=== PATIENT | female | born 1960 | race Caucasian/White ===

== ENCOUNTER → 2018-10-11 11:16 | Outpatient (CLI) | payer OTHER, SELFPAY ==
[2018-10-11 12:26] LABS: International Normalized Ratio 2.9; Prothrombin Time (Protime)PT. 30.1 SECONDS (11.7-14.9)
[2018-10-11 13:09] LABS: ALB/GLOB Ratio 1.1 RATIO (0.9-2.4); AST(SGOT) 32 U/L (15-37); Alanine Aminotransfer ALT/SGPT 36 U/L (13-56); Albumin, Serum 3.9 g/dL (3.2-5.0); Alkaline Phosphatase 97 U/L (45-117); Anion Gap 8 (5-15); BUN 10 mg/dL (7-18); BUN/Creat Ratio 12.2 RATIO (10-20); Calcium,Total 9.2 mg/dL (8.5-10.1); Chloride 108 mmol/L (98-107); Creatinine, Serum 0.82 mg/dL (0.55-1.02); EST Glomerular Filtration Rate 76 mL/min (>60); Est Glom Filt Rate - Afr Amer 92 mL/min (>60); Globulin 3.6 g/dL (2.2-4.2); Glucose 85 mg/dL (74-106); Potassium 3.7 mmol/L (3.5-5.1); Protein, Total 7.5 g/dL (6.4-8.2); Sodium Level 143 mmol/L (136-145); Thyroid Stim Hormone (TSH) 0.53 uIU/mL (0.358-3.74)
--- OUTSIDE RECORDS SUMMARY | 2018-12-04 17:10 | XMS RPT_ITS ---
:1960 Author Organization OHIP Care Team Providers Name Role Phone Jayson Meyers Attending Unavailable PROBLEMS PROBLEMS No Problem Records FoundPROCEDURES PROCEDURES No Procedure Records FoundRESULTS RESULTS PROTHROMBIN TIME W/INR Collected: 10/11/2018 Status: F Source: [place] 11:17 AM [facility] REPOSITORY Order Comment: Order Date: 07/09/18 Order Info: [id number] - PT TYPE CODE TESTS RESULT OUT OF RANGE REFERENCE UNITS LAB L300.4150 11.7-14.9 SECONDS High PROTIME 30.1 LAB L300.4200 Normal INR 2.9 Performed By: #### L300.3900, L500.4050, L501.9520 #### [facility] [address] [place], [place], [address] COMPREHENSIVE METABOLIC Collected: 10/11/2018 Status: F Source: [facility] 11:17 AM [facility] REPOSITORY Order Comment: Order Date: 07/09/18 Order Info: [id number] - CMP Order Info: [id number] - TSH TYPE CODE TESTS RESULT OUT OF RANGE REFERENCE UNITS LAB L501.0100 74-106 mg/dL Normal GLU 85 Result Comment: Please note revised GLUCOSE reference range effective 2017. LAB L501.1000 7-18 mg/dL Normal BUN 10 LAB L501.1100 0.55-1.02 mg/dL Normal CREAT,SERUM 0.82 Result Comment: The validity of the calculated GFR AND GFRAA in patients over 70 years has not been determined. Clinical correlation is essential. LAB L501.1110 >60 mL/min Normal EST GFR 76 Result Comment: Non- GFR Calc LAB L501.1115 >60 mL/min Normal EST GFR - AA 92 Result Comment: GFR Calc LAB L501.1300 10-20 RATIO Normal BUN/CRE 12.2 LAB L501.1500 6.4-8.2 g/dL T Normal PROT 7.5 LAB L501.1800 3.2-5.0 g/dL Normal ALB 3.9 LAB L501.1950 2.2-4.2 g/dL Normal GLOB 3.6 LAB L501.2000 0.9-2.4 RATIO Normal A/G 1.1 LAB L501.2200 8.5-10.1 mg/dL CA Normal 9.2 LAB L501.4100 15-37 U/L Normal AST 32 LAB L501.4305 45-117 U/L Normal ALK P 97 LAB L501.4405 13-56 U/L Normal ALT 36 LAB L501.4600 0.20-1.00 mg/dL T Normal BILI 0.50 LAB L501.5300 136-145 mmol/L NA Normal 143 LAB L501.5600 3.5-5.1 mmol/L K Normal 3.7 LAB L501.5900 98-107 mmol/L High CL 108 LAB L501.6100 21.0-32.0 mmol/L Normal CO2 27.0 LAB L501.6200 5-15 Normal GAP 8 Performed By: #### L300.3900, L500.4050, L501.9520 #### [facility] [address] [place], [place], [address] THYROID STIM HORMONE Collected: 10/11/2018 Status: F Source: [place] ([facility]) 11:17 AM [facility] REPOSITORY Order Comment: Order Date: 07/09/18 Order Info: [id number] - CMP Order Info: [id number] - TSH TYPE CODE TESTS RESULT OUT OF RANGE REFERENCE UNITS LAB L501.9520 0.358-3.74 uIU/mL Normal TSH 0.53 Performed By: #### L300.3900, L500.4050, L501.9520 #### [facility] [address] [place], [address] ALLERGIES ALLERGIES No Allergies Records FoundENCOUNTERS ENCOUNTERS ADMIT/DISCHARGE ACCOUNT ADMITTING ENCOUNTER LOCATION SOURCE NUMBER CLASS 10/11/2018 [id number] Ambulatory [facility] 4 [facility] ing:MFPLAB Repository PAYERS PAYERS ENCOUNTER GUARANTOR PAYER SUBSCRIBER SOURCE 10/11/2018 CHANTAL [id number] [id number] [address] Number: Repository [id number] (HP) Date:[id number] [address] [place] [id number]: 10/11/2018 [facility] Number: Effective Repository Date:2018-10-11
== END ==
PROVIDERS: Visit Provider Family Medicine
DX: I82.409 Acute embolism and thrombosis of unspecified deep veins of unspecified lower extremity (principal); R79.89 Other specified abnormal findings of blood chemistry; R03.0 Elevated blood-pressure reading, without diagnosis of hypertension
CPT/HCPCS: 36415; 80053; 84443; 85610

== ENCOUNTER 2018-11-19 11:58 | Outpatient (RCR) | payer OTHER, SELFPAY ==
[2018-11-19 14:02] LABS: International Normalized Ratio 2.7; Prothrombin Time (Protime)PT. 28.4 SECONDS (11.7-14.9)
== END 2018-11-19 13:00 | disposition home or self-care (01) ==
LOC: MTLAB 11:58
PROVIDERS: Family Provider Family Medicine; PCP Family Medicine; Referring Provider Family Medicine; Visit Provider Family Medicine
DX: I82.409 Acute embolism and thrombosis of unspecified deep veins of unspecified lower extremity (principal)
CPT/HCPCS: 36415; 85610

== ENCOUNTER → 2019-11-16 12:24 | Outpatient (CLI) | payer OTHER, SELFPAY ==
[2019-11-16 14:23] LABS: Absolute Lymphocyte Count 1.76 X10^3/uL (0.83-4.51); Absolute Neutrophil Count 4.2 X10^3/uL (2.0-7.7); Basophil# 0.06 X10^3/uL; Basophil% 0.9 % (0-1); Eosinophil# 0.08 X10^3/uL; Eosinophils% 1.2 % (0-5); Hematocrit 48.7 % (37-47); Hemoglobin 15.9 g/dL (12.0-15.0); Lymphocyte # 1.76 X10^3/ul (4.0); Mean Corp Hgb Conc 32.6 g/dL (32-36); Mean Corpuscular Hgb 28.3 pg (27.0-32.0); Mean Corpuscular Volume 86.7 fL (81-99); Mean Platelet Vol. 11.1 fl (6.2-12.0); Monocyte# 0.62 X10^3/uL; Monocyte% 9.2 % (0-10); NRBC Flagged by Analyzer 0 % (0-5); Neutrophil # 4.24 X10^3/uL (2.7-7.7); Neutrophil % 62.6 % (47-70); Platelet Count 243 K/mm3 (150-450); RBC Distribution Width SD 41.1 fl (35.1-43.9); Red Blood Count 5.62 M/mm3 (4.2-5.4); White Blood Count 6.8 K/mm3 (4.4-11.0)
[2019-11-16 14:39] LABS: Vitamin B12 801 pg/mL (211-911); Vitamin D,25 Hydroxy 9.1 ng/mL (29.95-100.01)
[2019-11-16 14:43] LABS: ALB/GLOB Ratio 1.3 RATIO (0.9-2.4); AST(SGOT) 21 U/L (15-37); Alanine Aminotransfer ALT/SGPT 36 U/L (13-56); Albumin, Serum 4.4 g/dL (3.2-5.0); Alkaline Phosphatase 88 U/L (45-117); Anion Gap 7 (5-15); BUN 8 mg/dL (7-18); BUN/Creat Ratio 8.8 RATIO (10-20); Calcium,Total 9.5 mg/dL (8.5-10.1); Chloride 105 mmol/L (98-107); Cholesterol 190 mg/dL (200); Creatinine, Serum 0.91 mg/dL (0.55-1.02); EST Glomerular Filtration Rate 67 mL/min (>60); Est Glom Filt Rate - Afr Amer 81 mL/min (>60); Globulin 3.5 g/dL (2.2-4.2); Glucose 97 mg/dL (74-106); High Density Lipoprotein 80 mg/dL; Potassium 3.1 mmol/L (3.5-5.1); Protein, Total 7.9 g/dL (6.4-8.2); Sodium Level 142 mmol/L (136-145); Thyroid Stim Hormone (TSH) 0.48 uIU/mL (0.358-3.74); Triglycerides 112 mg/dL; Very Low Density Lipoprotein 22 mg/dL (5-40)
== END ==
PROVIDERS: Family Provider Family Medicine; PCP Family Medicine; Referring Provider Family Medicine; Visit Provider Family Medicine
DX: R41.89 Other symptoms and signs involving cognitive functions and awareness (principal); Z13.220 Encounter for screening for lipoid disorders
CPT/HCPCS: 36415; 80053; 80061; 82306; 82607; 84443; 85025; 87086; 87088

== ENCOUNTER 2019-11-16 14:37 | Emergency (ER) | payer OTHER, SELFPAY ==
[2019-11-16 14:38] VITALS: BP 167/93; PULSE 76; RESP 16; TEMP 36.8; O2SAT 100; BMI 36.3
[2019-11-16 14:55] VITALS: BP 162/81; PULSE 78; RESP 15; O2SAT 99
--- NOTE | 2019-11-16 15:12 | EKG12_ITS ---
Test Reason : CONFUSION Blood Pressure : / mmHG Vent. Rate : 071 BPM Atrial Rate : 071 BPM P-R Int : 130 ms QRS Dur : 074 ms QT Int : 398 ms P-R-T Axes : 004 042 005 degrees QTc Int : 432 ms Normal sinus rhythm Normal ECG Confirmed by KLEVER KRISHNAMURTHY, EDDIE ([id number]), editorial director DEBORAH GUILLEN ([id number]) on 11/17/2019 10:36:40 AM Referred By: BB Confirmed By:ULISES ERNST MD
--- NOTE | 2019-11-16 15:12 | CT_ITS ---
STUDY: CT BRAIN WITHOUT CONTRAST REASON FOR EXAM: Female, 59 years old. CONFUSION, AMS RADIATION DOSAGE (If Supplied By Facility): CTDIvol = ( 60.81 ) mGy, DLP = ( 998.67 ) mGycm TECHNIQUE: Transaxial CT imaging of the brain was performed without administration of intravenous contrast material. Individualized dose optimization techniques were used for this CT. COMPARISON: No relevant priors. FINDINGS: Normal soft tissue structures. Normal calvarium. Mild calcification of cavernous carotids. Normal size ventricles and extra-axial spaces for the patient''s age. Mild periventricular white matter ischemic changes.. Normal basal ganglia and thalami. Normal brainstem. Normal cerebellum. There is no intracranial hemorrhage. There are no findings of an acute ischemic infarction. Normal visualized paranasal sinuses. CT/Brain/Head without Contrast IMPRESSION: Mild periventricular white matter ischemic change. No evidence for acute bleed. If concern for acute infarct MRI recommended. Electronically Signed: Elijah Jordan MD at 16:09 EST , Service support ,
--- NOTE | 2019-11-16 15:26 | ED.DCSUM_ITS ---
History of Present Illness Chief Complaint: Confusion Informant: Patient Onset: - - unk Context: - - unk Quality: disoriented Current Severity: Moderate Maximum Severity: Moderate Narrative: Patient is somewhat confused, and is alone at the time of initial evaluation, limiting history. According to staff he was given some history by the son, patient was sent here by her doctor's office after having had some blood work today. She was seen for the disorientation in the office by her PCP this morning. She states she does not feel well but has no other physical symptoms right now. She thinks she had some chest discomfort recently but it was not today. She does not remember much about it. She states she has been having headaches but denies having one now. She felt nauseated recently but not today. She does not remember having any vomiting. She thinks her bowel movements have been normal. No diarrhea or constipation or blood. She does not recall any f alls or injuries recently. She states she has been incontinent of urine from time to time but without dysuria or hematuria. Past Medical History - Allergies and Home Meds Allergies/Adverse Reactions: Allergies No Known Allergies Allergy (Verified 11/16/19 14:40) Primary Care Physician: Jayson Beck MD [Primary Care Provider] - Smoking Status: Never smoker Review of Systems ROS: Unable to Obtain - Limited due to mental status. See above. General: Reports: Malaise. Denies: Fever Eyes: Denies: Visual changes - bilaterally, Diplopia ENT: Denies: Bilateral ear pain, Rhinorrhea, Sore throat Cardiovascular: Reports: Chest pain - Sometime recently but not today or now Respiratory: Denies: Dyspnea, Cough Gastrointestinal: Reports: Nausea - Gone now. Denies: Abdominal pain, Vomiting, Diarrhea, Constipation Genitourinary: Reports: - - Urinary incontinence intermittently. Denies: Dysuria, Hematuria Musculoskeletal: Denies: Neck pain, Back pain, Swelling, Extremity Pain Skin: Denies: Rash, Abscess Neurological: Reports: - - Disorientation. Denies: Headache, Weakness, Parasthesia, Numbness Endocrine: Denies: Polyuria, Polydipsia, Heat intolerance, Cold intolerance Physical Exam Vital Signs/Narrative: Vital Signs Temp Pulse Resp BP Pulse Ox 11/16/19 14:55 78 15 162/81 H 99 11/16/19 14:38 98.2 F 76 16 167/93 H 100 Inital Vital Signs reviewed: Yes General: Well nourished, Well developed, No Acute Distress Head: Normocephalic, Atraumatic Eyes: Perrl, EOMI ENT: Moist mucous membranes, No rhinorrhea Neck: Supple, Nontender Cardiovascular: Regular rate, Regular rhythm, No murmurs Respiratory: No distress, CTA bilaterally, Chest nontender Abdomen: Soft, Nontender, Nondistended, Normal bowel sounds Back: Nontender, Normal Inspection Extremities: Nontender, - - Possibly trace nonpitting edema, symmetric both lower extremities Skin: Normal color, No rash, No Trauma Neurological: Alert, Oriented x3 - Answers all questions appropriately, but has somewhat of a spacey look and seems confused when trying to answer many questions., Cranial nerves II-XII grossly intact, Normal Strength, Normal Sensation, - - No aphasia or dysarthria or lateralizing exam findings. Able to identify objects appropriately. Psychological: Normal affect, Normal Mood Diagnostic/Tx/Re-eval Impressions Brain CT 11/16/19 15:12 IMPRESSION: Mild periventricular white matter ischemic change. No evidence for acute bleed. If concern for acute infarct MRI recommended. Electronically Signed: Elijah Jordan MD at 16:09 EST , Service support , Chest X-Ray 11/16/19 16:00 IMPRESSION: No acute cardiopulmonary pathology. Electronically Signed: Elijah Jordan MD at 16:23 EST , Service support , 11/16/19 15:12 CT Brain [Brain/Head without Contrast] [CT] Stat 11/16/19 16:00 CXR [Chest PA and Lateral] [RAD] Stat Laboratory Results 11/16/19 11/16/19 15:37 16:47 Troponin I < 0.015 Urine Color Yellow Urine Clarity Sl. Cloudy Urine pH 6.5 Ur Specific [place] 1.015 Urine Protein Negative Urine Glucose (UA) Normal Urine Ketones 50 H Urine Occult Blood Negative Urine Nitrite Negative Urine Bilirubin Negative Urine Urobilinogen Normal Ur Leukocyte Esterase 100 H Urine RBC 0 SEEN Urine WBC 0-5 SEEN Ur Squamous Epith Cells 0-5 SEEN Urine Bacteria RARE Urine Mucus 1+ - EKG Initial EKG Interpretation: Sinus Rhythm, No Acute Injury Pattern - 71. normal EKG. - Medical Decision Making Discussed with the son, this has been progressively worsening for months. Started with forgetting where her keys were and minor other memory problems. This may be dementia. Her work-up really is negative. I see no evidence of dehydration on the labs that were done earlier today but I gave her some IV fluids while we are awaiting the rest of the work-up anyway. Chest x-ray, CT head, cardiac work-up, and urinalysis are unremarkable except for 100 leukocyte Esterace in the urine, no pyuria or bacteria. I did send that for culture. I discussed with Dr. Botello on-call for her PCP, he will pass it on and the son is comfortable taking her home, they were advised to follow-up as an outpatient. ED Disposition - Plan for ED Patient: Disposition: Home or Assisted Living Diagnosis: Disorientation, unspecified Instructions: Confusion, DEMENTIA, Any Type Referrals: Jayson Beck MD [Primary Care Provider] - 3-5 Days
[2019-11-16] MEDS: 0.9% Normal Saline 1,000 ML 150 ML IV (15:47)
--- NOTE | 2019-11-16 16:00 | RAD_ITS ---
STUDY: X-RAY CHEST REASON FOR EXAM: Female, 59 years old. DIFFICULT TO OBTAIN CHEIF COMPLAINT FROM PT, PER SENT FROM PCP FOR EVAL OF CONFUSION FOR PAST MONTH, ALSO URINARY INCONTINENCE. TECHNIQUE: PA and lateral COMPARISON: None. FINDINGS: Less than optimal inspiratory effort is seen however the lungs are clear.. There is no demonstrated pleural abnormality. Normal size heart. Normal mediastinum and loly. Normal visualized pulmonary arteries. Normal visualized aortic arch and descending thoracic aorta. Dorsal spine demonstrates mild degenerative change. Normal visualized ribs, clavicles, and shoulders. There is no demonstrated abnormality of the visualized soft tissue structures of the upper abdomen. RAD/Chest PA and Lateral IMPRESSION: No acute cardiopulmonary pathology. Electronically Signed: Elijah Jordan MD at 16:23 EST , Service support ,
[2019-11-16 16:51] LABS: Red Blood Cells-Urine 0 SEEN /hpf (0-5)
[2019-11-16 17:15] LABS: Color, Urine Yellow (Yellow); Glucose, Dipstick Normal (Normal); Ketone-Dipstick 50 mg/dl (Negative); Leukocyte Esterase-Dipstick 100 /ul (Negative); Nitrite-Dipstick Negative (Negative); Occult Blood-Urine Negative /ul (Negative); Protein-Dipstick Negative (Negative); Specific Gravity, Urine 1.015 (1.002-1.030); Urine Bilirubin Dipstick Negative (Negative); Urine Clarity Sl. Cloudy (Clear); Urine Urobilinogen Normal (Normal); Urine pH 6.5 (5.0 - 8.0)
[2019-11-16 17:31] LABS: Bacteria RARE /hpf (None Seen); Mucous, Urine 1+ /hpf (<or=2+); Squamous Epithelial Cells - UA 0-5 SEEN /hpf (5-10)
[2019-11-16 17:32] LABS: White Blood Cells 0-5 SEEN /hpf (0-5)
[2019-11-16 18:00] VITALS: BP 180/65; PULSE 87; RESP 17; O2SAT 95
[2019-11-16 19:25] VITALS: BP 170/81; BP 170/91; PULSE 87; RESP 22; O2SAT 95
--- NOTE | 2019-11-16 19:39 | ED.RN ---
FAMILY ASKING QUESTIONS REGARDING THINGS THE FAMILY DOCTOR SAID ABOUT HER BRAIN/CONFUSION SYMPTOMS. I ONLY HAD DISCHARGE SYMPTOMS AND RESULTS OF TESTS DONE TODAY. I TOLD THEM WHAT I COULD AND ASKED THEM IF THEY WOULD LIKE ME TO BRING DR. LANGLEY IN TO ANSWER MORE QUESTIONS FOR THEM. THEY DENIED THIS REQUEST AT THIS TIME. PATIENT ALSO HAD ELEVATED BP THIS ENTIRE TIME SHE WAS IN THE DEPARTMENT. THEY STATED THEIR FAMILY DOCTOR IS WATCHING THIS. DR. NEIL WAS AWARE ALSO. THIS NURSE GAVE THEM INFORMATION ABOUT WHAT TO WATCH FOR IF THE BLOOD PRESSURE IS CAUSING INCREASED SYMPTOMS EXAMPLE SEVERE HEADACHES OR BLURRED VISION WHICH WOULD REQUIRE ANOTHER ED VISIT.
== END 2019-11-16 19:43 | disposition home or self-care (01) ==
PROVIDERS: Emergency Provider Emergency Medicine; Family Provider Family Medicine; PCP Family Medicine
DX: R41.0 Disorientation, unspecified (principal); R32 Unspecified urinary incontinence
CPT/HCPCS: 36415; 70450; 71046; 81001; 84484; 93005; 99284; A4216

== ENCOUNTER → 2019-12-17 08:36 | Outpatient (CLI) | payer OTHER, SELFPAY ==
--- NOTE | 2019-12-17 09:15 | MRI_ITS ---
STUDY: MRI BRAIN WITHOUT CONTRAST REASON FOR EXAM: Female, 59 years old. COGNITIVE IMPAIRMENT, memory loss, and amp;quot;hearing voices and amp;quot; TECHNIQUE: Standardized multiplanar fat and water weighted pulse sequences were obtained. COMPARISON: June 03, 2007 FINDINGS: Normal size of the ventricles and extra-axial spaces for the patient''s age. There are multiple white matter hyperintensities, distributed throughout the deep white matter tracts of the cerebral hemispheres, consistent with mild chronic white matter ischemic changes. Normal bilateral basal ganglia. Normal thalami. There is no extra-axial fluid accumulation. Normal flow voids within the major intracranial circulation suggesting patency by spin echo criteria. Normal sella turcica, pituitary gland, infundibular stalk, optic chiasm and hypothalamus. Normal tectal plate and pineal gland. Normal midbrain, bebeto and medulla. Normal cerebellum. Normal basal cisterns. Normal bilateral temporal bones. MRI/Brain without Contrast IMPRESSION: No acute intracranial abnormality. Mild chronic microvascular ischemic changes. Electronically Signed: Elkin Hawley MD at 9:16 EST Tel , Service support ,
== END ==
PROVIDERS: PCP Family Medicine; Referring Provider Family Medicine; Visit Provider Family Medicine
DX: R41.89 Other symptoms and signs involving cognitive functions and awareness (principal)
CPT/HCPCS: 70551

== ENCOUNTER → 2019-12-26 10:50 | Outpatient (CLI) | payer OTHER, SELFPAY ==
--- NOTE | 2019-12-26 11:00 | RAD_ITS ---
PROCEDURE: Fluoroscopic guided Lumbar Puncture. DATE: December 26, 2019. CLINICAL INDICATION: Dementia. PHYSICIAN: Hola Frye M.D. MEDICATIONS: 1% lidocaine administered subcutaneously for local anesthesia. ACCESS SITE: Lower posterior back. NEEDLE: 22-gauge spinal needle. SPECIMEN: Approximately 13 mL clear]CSF fluid. FLUOROSCOPY TIME (if supplied): (1:12) minutes/seconds COMPLICATIONS: None immediate. The risks, benefits, and alternatives to the procedure were explained to the patient. The specific risks of bleeding, infection, and neurovascular injury were detailed and accepted. Witnessed informed consent was obtained. The patient was placed on the fluoroscopic table in the prone position. The level for needle entry was determined and marked. The overlying skin was cleaned and prepped in the usual sterile fashion. 2% lidocaine was administered subcutaneously for local anesthesia. Under fluoroscopic guidance a 22-gauge spinal needle was advanced. The thecal sac was entered at the L2-L3 vertebral level. The inner stylet was removed. There was spontaneous flow of clear CSF fluid. The patient was placed in a reversed Trendelenburg position. Approximately 13 mL of cerebrospinal fluid was collected using gravity. The specimen was collected and submitted to the laboratory for further evaluation. The needle was withdrawn,. Hemostasis was achieved and a sterile dressing placed. The patient tolerated the procedure well without any immediate complications. The patient was placed supine with head elevated and returned to the floor in stable condition. RAD/Fluoro Guided Lumbar Puncture IMPRESSION: Successful fluoroscopic-guided lumbar puncture. Electronically Signed: Hloa Frye, at 12:41 EST , Service support ,
[2019-12-26 11:22] VITALS: BP 152/70; PULSE 83; RESP 18; TEMP 37.1; O2SAT 99; BMI 76.6
[2019-12-26 12:10] VITALS: BP 170/80; PULSE 76; RESP 18; TEMP 37.1; O2SAT 100
[2019-12-26 13:01] VITALS: BP 186/71; PULSE 87; RESP 18; O2SAT 99
[2019-12-26 14:19] LABS: Glucose Spinal Fluid 58 mg/dL (40-75)
[2019-12-26 14:21] LABS: Appearance CSF (character) CLEAR (Clear); CSF Color COLORLESS (Colorless); Tested Tube # 4
[2019-12-26 14:22] LABS: RBC Count, Spinal Fluid 0 /mm-3 (None seen); White Count, CSF 0 /mm-3 (0 - 5)
[2019-12-26 14:52] LABS: Body Fluid QC Type(s) BF1Q; Eosinophils,CSF 0 % (None seen); Lymphocytes,CSF 0 % (40 - 80); Monocytes,CSF 0 % (15 - 45); Neutrophils,CSF 0 % (0 - 6); Other Cells,CSF 0 %
[2019-12-27 14:40] LABS: Pathologist Review Reviewed
== END ==
PROVIDERS: PCP Family Medicine; Referring Provider Psychiatry & Neurology Neurology; Visit Provider Psychiatry & Neurology Neurology
DX: F28 Other psychotic disorder not due to a substance or known physiological condition (principal)
CPT/HCPCS: 62270; 77003; 82945; 84157; 89050; 89051

== ENCOUNTER 2020-01-01 08:49 | Emergency (ER) | payer OTHER, SELFPAY ==
[2019-12-26 11:22] VITALS: BMI 76.6
[2020-01-01 08:51] VITALS: BP 161/71; PULSE 86; RESP 17; TEMP 37.1; O2SAT 99; BMI 36.6
--- NOTE | 2020-01-01 09:29 | VDLE_ITS ---
Reason For Study: swelling RIGHT LEFT CFV is compressible, spontaneous, phasic, CFV, FV, POP V, T/P Trunk, PTV, Peroneal V, competent and demonstrates normal Gastroc V, and Soleus V are dilated and augmentation. noncompressible. Procedure GSV in the groin is dilated and Exam performed portable in ED. noncompressible. The remainder of the GSV is The exam was diagnostic. compressible. A preliminary report was called and/or faxed to Dr. Pool. Interpretation Summary Acute deep vein thrombosis is noted in the left common femoral vein. Acute deep vein thrombosis is noted in the left femoral vein. Acute deep vein thrombosis is noted in the left popliteal vein. Acute deep vein thrombosis is noted in the left tibio-peroneal trunk. Acute deep vein thrombosis is noted in the left posterior tibial vein. Acute deep vein thrombosis is noted in the left peroneal vein. Acute deep vein thrombosis is noted in the left gastrocnemius vein. Acute deep vein thrombosis is noted in the left soleus vein. Acute superficial thrombophlebitis is noted in the left great saphenous vein in the groin. Distal to the left groin, the left great saphenous vein is patent and compressible. Ordering Physician: Hay Pool Performed By: Marcello Oscar RVT
--- NOTE | 2020-01-01 09:30 | ED.DCSUM_ITS ---
- ER Visit Summary Date of Service: 01/01/20 Chief Complaint: Left leg swelling and pain behind her left knee. History of Present Illness: The patient is a 59 F who prior DVT x1. Currently on no blood thinners besides aspirin. States the last 2 days had discomfort behind her left knee and swelling in her left lower leg. Denies any chest pain or shortness of breath. No recent travel, surgery or immobilization. Physical Examination: Middle-aged female no acute distress vital signs stable afebrile. H EENT exam unremarkable. Neck nontender no lymphadenopathy. Lungs clear to auscultation bilaterally. Heart regular rate and rhythm no murmur rate about 85. Chest nontender. Abdomen soft nontender normal bowel sounds no peritoneal signs. Overweight. Extremities moves all 4. Neurovascular intact. Equal symmetrical dorsi plantarflexion. She does have 1+ edema in her left lower extremity. It is pitting edema. She has no cord. Calf is nontender. Both lower extremities are neurovascular intact. Neurologically she is awake alert with no focal motor or sensory deficits. Test Results: Left lower extremity noninvasive study read by the industrial safety and health technician shows extensive DVT from the ankle up until the groin. Emergency Department Course and Treatment: Uncertain for possible left lower extremity DVT with a prior history. Venous study will be obtained. Treatment Plan: Patient given her first dose of Xarelto in the emergency department. We placed on a twice daily for the first 20 days and then daily day 21. I did speak to Dr. Raleigh Munguia on-call for the patient's primary care ph ysician to ensure follow-up. Disposition: discharge Impression: Acute left lower extremity pain and swelling secondary to acute DVT extensive of the left lower extremity History of prior DVT This note was generated with [employer] dictation software. It may contain incorrect words, spelling, and punctuation that were not noted in review of the chart prior to signing ED Disposition - Plan for ED Patient: Referrals: Zeny Joy MD [Primary Care Provider] -
[2020-01-01 11:41] VITALS: BP 143/64
--- NOTE | 2020-01-01 11:51 | ED.DEP ---
ED Disposition - Plan for ED Patient: Disposition: Home or Assisted Living Instructions: Deep Vein Thrombosis Prescriptions: Rivaroxaban [Xarelto] 15 mg PO BID #19 tab Prescription Printed Rivaroxaban [Xarelto] 20 mg PO DAILY #30 tab Prescription Printed Referrals: Zeny Joy MD [Primary Care Provider] - As soon as possible Additional Instructions: Xarelto twice a day for the first 20 days and then once a day after that. Follow-up with your primary care physician.
[2020-01-01] MEDS: Rivaroxaban 15 MG Tablet PO (12:09)
[2020-01-01 12:12] VITALS: BP 158/82; PULSE 83; RESP 17; O2SAT 99
== END 2020-01-01 12:12 | disposition home or self-care (01) ==
PROVIDERS: Emergency Provider Emergency Medicine; PCP Family Medicine
DX: I82.4Z2 Acute embolism and thrombosis of unspecified deep veins of left distal lower extremity (principal); Z86.718 Personal history of other venous thrombosis and embolism
CPT/HCPCS: 93971; 99283

== ENCOUNTER → 2020-01-21 11:08 | Outpatient (CLI) | payer OTHER, SELFPAY ==
[2020-01-01 08:51] VITALS: BMI 36.6
[2020-01-21 11:59] LABS: Absolute Lymphocyte Count 1.75 X10^3/uL (0.83-4.51); Absolute Neutrophil Count 3.2 X10^3/uL (2.0-7.7); Basophil# 0.06 X10^3/uL; Eosinophil# 0.21 X10^3/uL; Eosinophils% 3.7 % (0-5); Hematocrit 45.9 % (37-47); Hemoglobin 14.4 g/dL (12.0-15.0); Lymphocyte # 1.75 X10^3/ul (4.0); Lymphocyte % 30.5 % (19-41); Mean Corp Hgb Conc 31.4 g/dL (32-36); Mean Corpuscular Hgb 28.4 pg (27.0-32.0); Mean Corpuscular Volume 90.5 fL (81-99); Monocyte# 0.49 X10^3/uL; Monocyte% 8.6 % (0-10); NRBC Flagged by Analyzer 0 % (0-5); Neutrophil # 3.21 X10^3/uL (2.7-7.7); Platelet Count 264 K/mm3 (150-450); RBC Distribution Width CV 13.5 % (11.6-14.6); RBC Distribution Width SD 44.6 fl (35.1-43.9); Red Blood Count 5.07 M/mm3 (4.2-5.4); White Blood Count 5.7 K/mm3 (4.4-11.0)
[2020-01-21 12:23] LABS: ALB/GLOB Ratio 1.1 RATIO (0.9-2.4); AST(SGOT) 17 U/L (15-37); Alanine Aminotransfer ALT/SGPT 28 U/L (13-56); Albumin, Serum 3.7 g/dL (3.2-5.0); Alkaline Phosphatase 94 U/L (45-117); Anion Gap 3 (5-15); BUN 7 mg/dL (7-18); BUN/Creat Ratio 8.8 RATIO (10-20); Calcium,Total 9.4 mg/dL (8.5-10.1); Chloride 108 mmol/L (98-107); EST Glomerular Filtration Rate 78 mL/min (>60); Est Glom Filt Rate - Afr Amer 94 mL/min (>60); Globulin 3.5 g/dL (2.2-4.2); Glucose 83 mg/dL (74-106); Potassium 3.7 mmol/L (3.5-5.1); Protein, Total 7.2 g/dL (6.4-8.2); Sodium Level 142 mmol/L (136-145)
== END ==
LOC: LAB.FUTURE 11:10 → LAB 11:13
PROVIDERS: PCP Family Medicine; Referring Provider Nurse Practitioner Family; Visit Provider Nurse Practitioner Family
DX: R94.01 Abnormal electroencephalogram [EEG] (principal)
CPT/HCPCS: 36415; 80053; 85025

== ENCOUNTER → 2020-04-16 14:13 | Outpatient (CLI) | payer OTHER, SELFPAY ==
--- NOTE | 2020-04-16 14:21 | VDLE_ITS ---
Reason For Study: Swelling RIGHT LEFT CFV is compressible, spontaneous, phasic, GSV is partially compressible at junction competent and demonstrates normal with bright intraluminal echoes. Remaining augmentation. GSV is compressible. Procedure CFV is partially compressible with minimal Exam performed in department. flow noted. Bright intraluminal echoes noted A preliminary report was called and/or faxed in the CFV. to [facility]. FV is noncompressible with chronic and acute thrombus noted. PopV is partially comrpessible with minimal flow noted. Bright intraluminal echoes noted in the PopV. Acute deep vein thrombosis is noted in the T/P Trunk, PTV, PeroV. Nonvascularized structure noted in the left popliteal fossa noted measuring approximently 0.77 x 1.76 x 4.57 cm. Interpretation Summary Acute deep vein thrombosis is noted in the left femoral vein. Acute deep vein thrombosis is noted in the left tibio-peroneal trunk. Acute deep vein thrombosis is noted in the left posterior tibial vein. Acute deep vein thrombosis is noted in the left peroneal vein. Chronic venous changes are noted in the left common femoral vein and popliteal vein, which are partially compressible and demonstrate bright intraluminal echogenicity. Chronic venous changes are noted in the left great saphenous vein near the sapheno-femoral junction. The left great saphenous vein is otherwise patent and compressible. A non-vascular, hypoechoic structure is noted in the left popliteal space, measuring 0.77 cm x 1.76 cm x 4.57 cm. This probably represents a popliteal cyst. Clinical correlation is advised. Ordering Physician: Clarissa Lobo Referring Physician: Zeny Joy M.D. Performed By: Katelin Warren RVT
== END ==
PROVIDERS: PCP Family Medicine; Referring Provider Nurse Practitioner Adult Health; Visit Provider Nurse Practitioner Adult Health
DX: M25.472 Effusion, left ankle (principal)
CPT/HCPCS: 93971

== ENCOUNTER → 2020-07-26 11:15 | Outpatient (CLI) | payer OTHER, SELFPAY ==
[2020-07-26 15:55] LABS: Hematocrit 43.7 % (37-47); Hemoglobin 14.2 g/dL (12.0-15.0); Mean Corp Hgb Conc 32.5 g/dL (32-36); Mean Corpuscular Hgb 28.9 pg (27.0-32.0); Mean Platelet Vol. 12.5 fl (6.2-12.0); Platelet Count 192 K/mm3 (150-450); RBC Distribution Width CV 13.4 % (11.6-14.6); RBC Distribution Width SD 43.6 fl (35.1-43.9); Red Blood Count 4.91 M/mm3 (4.2-5.4); White Blood Count 5.7 K/mm3 (4.4-11.0)
[2020-07-26 16:08] LABS: Vitamin B12 375 pg/mL (211-911)
[2020-07-26 16:11] LABS: AST(SGOT) 113 U/L (15-37); Alanine Aminotransfer ALT/SGPT 165 U/L (13-56); Albumin, Serum 3.6 g/dL (3.2-5.0); Alkaline Phosphatase 228 U/L (45-117); Anion Gap 6 (5-15); BUN 6 mg/dL (7-18); BUN/Creat Ratio 7.5 RATIO (10-20); Calcium,Total 9.2 mg/dL (8.5-10.1); Chloride 110 mmol/L (98-107); EST Glomerular Filtration Rate 77 mL/min (>60); Est Glom Filt Rate - Afr Amer 94 mL/min (>60); Globulin 3.5 g/dL (2.2-4.2); Glucose 88 mg/dL (74-106); Potassium 3.2 mmol/L (3.5-5.1); Protein, Total 7.1 g/dL (6.4-8.2); Sodium Level 144 mmol/L (136-145); Thyroid Stim Hormone (TSH) 0.29 uIU/mL (0.358-3.74)
== END ==
PROVIDERS: PCP Family Medicine; Referring Provider Family Medicine; Visit Provider Psychiatry & Neurology Psychiatry
DX: R53.83 Other fatigue (principal); F19.10 Other psychoactive substance abuse, uncomplicated; Z79.899 Other long term (current) drug therapy
CPT/HCPCS: 36415; 80053; 82607; 84443; 85027

== ENCOUNTER → 2020-07-31 16:09 | Outpatient (CLI) | payer OTHER, SELFPAY | PROVIDERS: PCP Family Medicine; Referring Provider Family Medicine; Visit Provider Psychiatry & Neurology Psychiatry | DX: F19.10 Other psychoactive substance abuse, uncomplicated (principal); R53.83 Other fatigue; Z79.899 Other long term (current) drug therapy | CPT/HCPCS: 36415; 82140 ==

== ENCOUNTER → 2020-09-04 12:03 | Outpatient (CLI) | payer OTHER, SELFPAY ==
[2020-09-04 15:24] LABS: Free T3 2.8 pg/mL (2.18-3.98); T4 Free Direct 1.18 ng/dL (0.76-1.46)
[2020-09-04 15:46] LABS: HIV - WCH Non-Reactive (Nonreactive)
[2020-09-07 07:07] LABS: HEPATITIS B SURFACE AG Negative (Negative); Hepatitis A AB, Total Negative (Negative); Hepatitis A IgM Antibody Negative (Negative); Hepatitis B Core AB IgM Negative (Negative); Hepatitis B Core Ab Total Negative (Negative); Hepatitis C Ab <0.1 s/co ratio (0.0-0.9); Thyroid Stim Immunoglob <0.10 IU/L (0.00-0.55)
[2020-09-07 08:41] LABS: Anti-Thyroglobulin AB < 1.0 IU/mL (0.0-0.9); Hep B Surface Antibodies Reactive (.); Thyroglobulin, Serum Qt. 16.4 ng/mL (1.5-38.5)
== END ==
PROVIDERS: PCP Family Medicine; Referring Provider Family Medicine; Visit Provider Family Medicine
DX: E05.00 Thyrotoxicosis with diffuse goiter without thyrotoxic crisis or storm (principal); R74.01 Elevation of levels of liver transaminase levels
CPT/HCPCS: 36415; 84432; 84439; 84445; 84481; 86703; 86704; 86705; 86706; 86708; 86709; 86800; 86803; 87340

== ENCOUNTER → 2021-06-07 10:47 | Outpatient (CLI) | payer OTHER, SELFPAY ==
[2021-06-07 12:02] LABS: Absolute Neutrophil Count 4.1 X10^3/uL (2.0-7.7); Basophil# 0.06 X10^3/uL; Eosinophil# 0.16 X10^3/uL; Eosinophils% 2.6 % (0-5); Hematocrit 43.4 % (37-47); Hemoglobin 13.8 g/dL (12.0-15.0); Lymphocyte % 20.8 % (19-41); Mean Corp Hgb Conc 31.8 g/dL (32-36); Mean Corpuscular Hgb 28.5 pg (27.0-32.0); Mean Corpuscular Volume 89.5 fL (81-99); Mean Platelet Vol. 11.5 fl (6.2-12.0); Monocyte# 0.63 X10^3/uL; Monocyte% 10.1 % (0-10); NRBC Flagged by Analyzer 0 % (0-5); Neutrophil # 4.07 X10^3/uL (2.7-7.7); Neutrophil % 65.2 % (47-70); Platelet Count 196 K/mm3 (150-450); RBC Distribution Width CV 13.1 % (11.6-14.6); RBC Distribution Width SD 43.1 fl (35.1-43.9); Red Blood Count 4.85 M/mm3 (4.2-5.4); White Blood Count 6.2 K/mm3 (4.4-11.0)
[2021-06-07 12:21] LABS: Vitamin B12 341 pg/mL (211-911)
[2021-06-07 12:25] LABS: ALB/GLOB Ratio 1.3 RATIO (0.9-2.4); AST(SGOT) 25 U/L (15-37); Alanine Aminotransfer ALT/SGPT 56 U/L (13-56); Albumin, Serum 3.8 g/dL (3.2-5.0); Alkaline Phosphatase 92 U/L (45-117); Anion Gap 8 (5-15); BUN 11 mg/dL (7-18); BUN/Creat Ratio 14.8 RATIO (10-20); Calcium,Total 9.1 mg/dL (8.5-10.1); Chloride 109 mmol/L (98-107); Creatinine, Serum 0.74 mg/dL (0.55-1.02); EST Glomerular Filtration Rate 84 mL/min (>60); Est Glom Filt Rate - Afr Amer 101 mL/min (>60); Free T3 2.5 pg/mL (2.18-3.98); Glucose 84 mg/dL (74-106); Potassium 4.3 mmol/L (3.5-5.1); Protein, Total 6.8 g/dL (6.4-8.2); Sodium Level 143 mmol/L (136-145); T4 Free Direct 1.02 ng/dL (0.76-1.46); Thyroid Stim Hormone (TSH) 0.47 uIU/mL (0.358-3.74)
== END ==
LOC: MFPLAB 10:48
PROVIDERS: PCP Family Medicine; Referring Provider Family Medicine; Visit Provider Family Medicine
DX: R41.89 Other symptoms and signs involving cognitive functions and awareness (principal); E05.00 Thyrotoxicosis with diffuse goiter without thyrotoxic crisis or storm
CPT/HCPCS: 36415; 80053; 82607; 84439; 84443; 84481; 85025

== ENCOUNTER → 2021-06-21 08:12 | Outpatient (CLI) | payer OTHER, SELFPAY ==
--- NOTE | 2021-06-21 08:15 | VDLE_ITS ---
Reason For Study: DVT/ EMBOLISM RIGHT LEFT CFV is compressible, spontaneous, phasic, GSV is normal. competent and demonstrates normal FV is compressible, spontaneous, phasic, augmentation. competent and demonstrates normal Procedure augmentation. Exam performed in department. PTV is compressible. Dr Beck's office called X 3 - unable to LT PerV is compressible. reach office. Left CFV is partially compressible proximal Prelim report was faxed with patient number to [facility] and contains bright echoes consistent to follow up. with chroic DVT. Left SFJ is partially compressible and contains echoes consistent with acute on chronic DVT. The remainder of the CFV is compressible. Left PopV is partialy compressible and contains echoes consistent with acute DVT. Left T/P Trunk is partially compressible and contains echoes consistent with acute DVT. VL/Venous Duplex US, Unilateral Interpretation Summary Chronic deep venous thrombosis left common femoral vein proximal to the sapheno femoral junction. Chronic deep venous thrombosis involving the left popliteal vein. Difficult to decipher chronic versus acute and chronic left tibioperoneal trunk deep venous thrombosis. Patent and compressible left great saphenous vein Normal flow patterns right common femoral vein Ordering Physician: Dhruv Beck Referring Physician: DHRUV BECK Performed By: Lou John, RDCS, RVT
== END ==
PROVIDERS: PCP Family Medicine; Referring Provider Family Medicine; Visit Provider Family Medicine
DX: I82.512 Chronic embolism and thrombosis of left femoral vein (principal); I82.532 Chronic embolism and thrombosis of left popliteal vein
CPT/HCPCS: 93971

== ENCOUNTER → 2021-07-05 16:53 | Outpatient (CLI) | payer OTHER, SELFPAY ==
[2021-07-05 16:55] LABS: Red Blood Cells-Urine 0 SEEN /hpf (0-5)
[2021-07-05 18:11] LABS: Color, Urine Yellow (Yellow); Glucose, Dipstick Normal (Normal); Ketone-Dipstick Negative (Negative); Leukocyte Esterase-Dipstick 500 /ul (Negative); Nitrite-Dipstick Negative (Negative); Occult Blood-Urine Negative /ul (Negative); Protein-Dipstick 15 mg/dl (Negative); Urine Bilirubin Dipstick Negative (Negative); Urine Clarity Sl. Cloudy (Clear); Urine Urobilinogen Normal (Normal)
[2021-07-05 18:23] LABS: Squamous Epithelial Cells - UA 5-10 SEEN /hpf (5-10); White Blood Cells 0-5 SEEN /hpf (0-5)
[2021-07-05 18:24] LABS: Bacteria 1+ /hpf (None Seen); Mucous, Urine 1+ /hpf (<or=2+)
== END ==
PROVIDERS: PCP Family Medicine; Visit Provider Family Medicine
DX: R31.9 Hematuria, unspecified (principal)
CPT/HCPCS: 81001; 87086; 87088

== ENCOUNTER 2021-09-13 15:31 | Emergency (ER) | payer OTHER, SELFPAY ==
[2021-09-13 15:31] VITALS: BP 163/87; PULSE 85; RESP 14; TEMP 35.9; O2SAT 100; BMI 65.2
--- NOTE | 2021-09-13 16:02 | VDLE_ITS ---
Reason For Study: LLE SWELLING< HX DVT RIGHT LEFT CFV is compressible, spontaneous, competent GSV is normal. and demonstrates pulsatile venous flow. CFV is compressible, spontaneous, competent, Procedure and demonstrates pulsatile venous flow. This is a venous duplex using B-mode, color T/P Trunk is compressible. flow and spectral Doppler. PTV is compressible. Exam performed portable in ED. LT PerV is compressible. The study was technically difficult. Prox FV is compressible. A preliminary report was called and/or faxed Mid FV, Distal FV & POP V are NON- to Dr. Faria @ 4:30 pm. COMPRESSIBLE. NON-VASCULAR structure noted in the left POP FOSSA measuring 3.32 x 1.48 cm. VL/Venous Duplex US, Unilateral Interpretation Summary Chronic deep venous thrombosis left mid and distal femoral vein and popliteal v ein. Left popliteal fossa 3.32 x 1.48 cm nonvascular structure consistent with a Ross er's cyst. Clinical correlation would be appropriate. Patent and compressible left great saphenous vein Patent and compressible right common femoral vein Pulsatile venous flow noted bilateral common veins consistent with proximal shailesh ous hypertension or obstruction. Ordering Physician: Jt Faria Referring Physician: Jayson Beck Performed By: Yasmine Lopez, TACHO, RVT
--- NOTE | 2021-09-13 16:03 | ED.VIS.LOWEX ---
HPI History of Present Illness Chief Complaint: Lower Extremity Injury Informant: patient and family Narrative Narrative: 61-year-old female presents to the emergency department with swelling and pain of the left leg. Family states that she has had prior DVT in the left leg and was on Eliquis up until about a month ago when they were changed to Xarelto. Daughter does not know why the change was made. She does not know how often the patient gets her medications because she was noted last night to spit out half of her pill. Family does not know how often that has been occurring as it happens when they were leaving the room. They noted increased swelling to the leg on and now noted some redness of the foot and the leg up to about mid pitt. No reported fevers. PFSH PFS Medical History (Updated 09/13/21 @ 17:[address] Jt Faria DO) Dementia DVT (deep venous thrombosis) Home Medications aspirin 81 mg PO DAILY@0800 11/16/19 [History Last Taken 12/31/19] rivaroxaban 15 mg PO BID #19 tab 01/01/20 [Rx Last Taken Unknown] rivaroxaban 20 mg PO DAILY #30 tab 01/01/20 [Rx Last Taken Unknown] cephalexin 500 mg PO Q6 #40 capsule 09/13/21 [Rx Last Taken Unknown] furosemide [Lasix] 40 mg PO DAILY #7 tab 09/13/21 [Rx Last Taken Unknown] Allergy/AdvReac Type Severity Reaction Status Date / Time No Known Allergies Allergy Verified 09/13/21 15:31 Social History (Updated 09/13/21 @ 16:[address] Jt Faria DO) Smoking Status: Never smoker substance use type: does not use ROS ROS ED Constitutional Constitutional ED: Denies chills, fever(s) or weight loss Eyes Eyes: Denies change in vision or diplopia ENT ENT ED: Denies ear pain, rhinorrhea or sore throat Cardiovascular Cardiovascular: Denies chest pain, orthopnea, palpitations or racing heartbeat Respiratory/Chest Respiratory/Chest: Denies cough, dyspnea or orthopnea Gastrointestinal Gastrointestinal: Denies abdominal pain, diarrhea, nausea or vomiting Genitourinary Genitourinary ED: Denies dysuria, hematuria or urinary frequency Musculoskeletal Musculoskeletal: Reports other Details: Left leg swelling ; Denies arthralgias or myalgias Integumentary Reports rash; Denies abscess Neurologic Neurologic: Denies headache(s) or weakness Psychiatric Psychiatric: Denies anxiety, depression, suicidal ideation or suicidal thoughts Endocrine Endocrinology: Denies polydipsia, polyphagia or polyuria Allergic/Immunologic Allergic/Immunologic ED: Denies mouth swelling, tongue swelling or urticaria EXAM Physical Exam Const Vital Signs: 09/13/21 15:31 Temperature 96.7 F L Temperature Source Temporal Pulse Rate 85 Respiratory Rate 14 Blood Pressure 163/87 H Blood Pressure Mean 112 Pulse Ox 100 Oxygen Delivery Method Room Air Positive well nourished, well developed and obese General Appearance ED: well developed Nutritional Appearance: obese HEENT Reports normocephalic, head/scalp atraumatic and moist mucous membranes normocephalic and atraumatic Eyes PERRL and EOMs intact bilaterally Neck full ROM, no lymphadenopathy, supple and no JVD Resp normal respiratory effort and clear to auscultation bilaterally Cardio regular rate, regular rhythm and no murmurs GI normal to inspection, nondistended, normoactive bowel sounds and non-tender Palpation: soft Back/Spine no CVA tenderness and normal ROM Extremity Extremity Narrative: Left leg is more swollen than the right. There is erythema of the dorsum of the left foot and left leg up to about mid pitt. Mild tenderness to palpation General Extremety ED: Negative for edema General Extremity: Negative for edema Neuro CN's II-XII intact bilaterally Sensorium / Orientation: alert and orientation impaired Motor Exam: strength 5/5 throughout Psych mental status grossly normal Mood & Affect: Negative for depressed or tearful Skin no rashes or lesions noted and no wounds MDM MDM MDM Narrative Medical decision making narrative: Duplex ultrasound was obtained does not show new clots. Her white count is normal at 6.9. Lactic acid normal at 0.7. Blood cultures were obtained. She is not currently on antibiotics does not have a fever. I will write for her to have Keflex will also add in some Lasix encouraged her to elevate her leg follow-up with her primary care provider next week Lab Data Attestation: I reviewed the patient's lab results. Labs: Laboratory Results - last 24 hr 09/13/21 09/13/21 09/13/21 16:15 16:15 16:55 WBC 6.9 RBC 4.70 Hgb 14.1 Hct 41.6 MCV 88.5 MCH 30.0 MCHC 33.9 RDW Std Deviation 43.0 RDW Coeff of Phoebe 13.2 Plt Count 213 MPV 11.2 Immature Gran % (Auto) 0.300 Neut % (Auto) 68.8 Lymph % (Auto) 17.3 L [place] % (Auto) 10.8 H Eos % (Auto) 1.9 Baso % (Auto) 0.9 Absolute Neuts (auto) 4.7 Absolute Lymphs (auto) 1.19 Nucleated RBC % 0 Sodium 141 Potassium 3.7 Chloride 109 H Carbon Dioxide 29.0 Anion Gap 3 L BUN 16 Creatinine 0.84 Estim Creat Clear Calc 56.71 Est GFR (MDRD) Af Amer 89 Est GFR (MDRD) Non-Af 73 BUN/Creatinine Ratio 19.2 Glucose 94 Lactic Acid 0.7 Calcium 9.4 Total Bilirubin 0.50 AST 22 ALT 33 Alkaline Phosphatase 72 Total Protein 7.0 Albumin 3.6 Globulin 3.4 Albumin/Globulin Ratio 1.1 Discharge Plan Triage Chief Complaint: Lower Extremity Injury ED Provider: Jt Faria Dx/Rx/DC Orders Clinical Impression: Cellulitis of left leg, Lymphedema of left leg Instructions: ED Cellulitis, ED Peripheral Edema, Unilateral Prescriptions: New furosemide [Lasix] 40 mg tablet 40 mg PO DAILY Qty: 7 RF: 0 cephalexin [cephalexin] 500 MG capsule 500 mg PO Q6 Qty: 40 RF: 0 No Action aspirin 81 MG tablet,chewable 81 mg PO DAILY@0800 RF: 0 rivaroxaban 15 MG tablet 15 mg PO BID Qty: 19 RF: 0 rivaroxaban 20 MG tablet 20 mg PO DAILY Qty: 30 RF: 0 Primary Care Provider: Jayson Beck Referrals: Jayson Beck MD [Primary Care Provider] - [facility] appointment Disposition Disposition: Home, Self Care
[2021-09-13 16:35] LABS: Absolute Lymphocyte Count 1.19 X10^3/uL (0.83-4.51); Absolute Neutrophil Count 4.7 X10^3/uL (2.0-7.7); Basophil# 0.06 X10^3/uL; Basophil% 0.9 % (0-1); Eosinophil# 0.13 X10^3/uL; Eosinophils% 1.9 % (0-5); Hematocrit 41.6 % (37-47); Hemoglobin 14.1 g/dL (12.0-15.0); Lymphocyte # 1.19 X10^3/ul (0.83-4.51); Lymphocyte % 17.3 % (19-41); Mean Corp Hgb Conc 33.9 g/dL (32-36); Mean Corpuscular Volume 88.5 fL (81-99); Mean Platelet Vol. 11.2 fl (6.2-12.0); Monocyte# 0.74 X10^3/uL; Monocyte% 10.8 % (0-10); NRBC Flagged by Analyzer 0 % (0-5); Neutrophil # 4.73 X10^3/uL (2.7-7.7); Neutrophil % 68.8 % (47-70); Platelet Count 213 K/mm3 (150-450); RBC Distribution Width CV 13.2 % (11.6-14.6); White Blood Count 6.9 K/mm3 (4.4-11.0)
[2021-09-13 16:53] LABS: ALB/GLOB Ratio 1.1 RATIO (0.9-2.4); AST(SGOT) 22 U/L (15-37); Alanine Aminotransfer ALT/SGPT 33 U/L (13-56); Albumin, Serum 3.6 g/dL (3.2-5.0); Alkaline Phosphatase 72 U/L (45-117); Anion Gap 3 (5-15); BUN 16 mg/dL (7-18); BUN/Creat Ratio 19.2 RATIO (10-20); Calcium,Total 9.4 mg/dL (8.5-10.1); Chloride 109 mmol/L (98-107); Creatinine, Serum 0.84 mg/dL (0.55-1.02); EST Glomerular Filtration Rate 73 mL/min (>60); Est Glom Filt Rate - Afr Amer 89 mL/min (>60); Estimated Creatinine Clearance 56.71 ml/min; Globulin 3.4 g/dL (2.2-4.2); Glucose 94 mg/dL (74-106); Potassium 3.7 mmol/L (3.5-5.1); Sodium Level 141 mmol/L (136-145)
[2021-09-13 17:30] LABS: Lactic Acid 0.7 mmol/L (0.4-1.9)
== END 2021-09-13 17:51 | disposition home or self-care (01) ==
PROVIDERS: Emergency Provider Emergency Medicine; PCP Family Medicine
DX: L03.116 Cellulitis of left lower limb (principal); I89.0 Lymphedema, not elsewhere classified; E66.9 Obesity, unspecified
CPT/HCPCS: 36415; 80053; 83605; 85025; 87040; 93971; 99283; A4216

== ENCOUNTER 2021-10-18 19:27 | Inpatient (IN) | payer OTHER, SELFPAY ==
[2021-10-18 19:28] VITALS: BP 149/68; PULSE 96; RESP 17; TEMP 36.4; O2SAT 93; BMI 30.9
--- NOTE | 2021-10-18 19:47 | RAD_ITS ---
INDICATION: LOW PULSE OX EXAMINATION/TECHNIQUE: X-RAY - XR Chest 1 View COMPARISON: November 2019 chest x-ray FINDINGS: LINES/DEVICES: None. LUNGS: Hazy ill-defined perihilar airspace disease is seen on the left. Lungs are otherwise clear. No nodule or mass. No pleural effusion or pneumothorax. Normal pulmonary interstitial pattern. MEDIASTINUM AND CARDIOVASCULAR STRUCTURES: Normal size and contour of the cardiomediastinal silhouette. No evidence of pulmonary vascular congestion. BONES AND SOFT TISSUES: No abnormality within limits of the exam. RAD/Chest 1 View IMPRESSION: 1. Subtle left perihilar airspace disease likely representing pneumonia. Follow-up chest x-ray in 6 weeks to ensure resolution is recommended. Electronically Signed: Parrish García DO at 20:13 EST Tel , Service support ,
--- NOTE | 2021-10-18 20:40 | EKG12_ITS ---
Test Reason : DYSRHYTHMIA Blood Pressure : / mmHG Vent. Rate : 086 BPM Atrial Rate : 086 BPM P-R Int : 140 ms QRS Dur : 070 ms QT Int : 382 ms P-R-T Axes : 063 041 012 degrees QTc Int : 457 ms Normal sinus rhythm Nonspecific ST and T wave abnormality Abnormal ECG Confirmed by KELLIE KRISHNAMURTHY, ANNELIESE ([id number]), editor at large ESTIVEN RAE ([id number]) on 10/21/2021 10:09:10 AM Referred By: OSWALDO Confirmed By:ANNELIESE HOPKINS MD
--- NOTE | 2021-10-18 20:41 | ED.VIS.DYS ---
HPI History of Present Illness Chief Complaint: Shortness of Breath Detail of Chief Complaint: Shortness of breath, COVID-19, and generalized weakness Informant: patient and family Narrative Narrative: Patient presents to the emergency department with her daughter with complaint of low oxygen levels at home. Patient was diagnosed with COVID-19 2 days ago but has had symptoms for about 6 days. Daughter states that she had a pulse oximeter at home and her readings today were down to 85% on room air. Patient has dementia and is a poor historian therefore the history comes from the patient's daughter who lives with her. Patient also has history of DVT and is currently on Xarelto. She denies any chest pain. Patient really does not answer questions well. [facility] Medical History (Updated 10/18/21 @ 23:[address] Chyna Carrion DO) Dementia DVT (deep venous thrombosis) Home Medications aspirin 81 mg PO DAILY@0800 11/16/19 [History Last Taken 12/31/19] rivaroxaban 15 mg PO BID #19 tab 01/01/20 [Rx Last Taken Unknown] rivaroxaban 20 mg PO DAILY #30 tab 01/01/20 [Rx Last Taken Unknown] cephalexin 500 mg PO Q6 #40 capsule 09/13/21 [Rx Last Taken Unknown] furosemide [Lasix] 40 mg PO DAILY #7 tab 09/13/21 [Rx Last Taken Unknown] Allergy/AdvReac Type Severity Reaction Status Date / Time No Known Allergies Allergy Verified 09/13/21 15:31 Social History (Updated 09/13/21 @ 16:[address] Jt Faria DO) Smoking Status: Never smoker substance use type: does not use ROS ROS ED Constitutional Constitutional ED: Reports systems reviewed and no addt'l complaints, except as documented and fever(s); Denies body ache(s), change in weight or chills Eyes Eyes: Denies acute decrease in peripheral vision, change in vision, double vision or loss of vision ENT ENT ED: Reports none; Denies ear pain, lip swelling, loss taste/smell, neck pain, otalgia or sore throat Cardiovascular Cardiovascular: Reports none; Denies abdominal pain, chest pain with activity, leg edema, lightheadedness, palpitations, rapid heart rate or syncope Respiratory/Chest Respiratory/Chest: Reports none, cough and dyspnea; Denies change in mental status, dry cough, hemoptysis, shortness of breath at rest or shortness of breath with exertion Gastrointestinal Gastrointestinal: Reports none; Denies abdominal pain, change in stool character, diarrhea, hematemesis, hematochezia, melena, rectal bleeding or vomiting Genitourinary Genitourinary ED: Reports none; Denies abdominal discomfort, anuria, dysuria, genital pain or polyuria Musculoskeletal Musculoskeletal: Reports none; Denies arthralgias, back pain, difficulty walking, extremity pain, muscle weakness or myalgias Integumentary Reports none; Denies abscess or rash Neurologic Neurologic: Reports none and weakness; Denies abnormal gait, confusion, focal weakness, frequent falls, headache(s), loss of vision, numbness, paresthesias, radicular pain or vertigo Psychiatric Psychiatric: Reports systems reviewed and no addt'l complaints, except as documented and none; Denies behavioral changes, confusion, difficulty concentrating, hallucinations, suicidal ideation, tactile hallucinations or visual hallucinations Endocrine Endocrinology: Denies none, cold intolerance, excessive sweating, fatigue or heat intolerance Hematologic/Lymphatic Hematologic/Lymphatic: Reports none; Denies anemia, easy bleeding or easy bruising Allergic/Immunologic Allergic/Immunologic ED: Denies as per HPI, none, lip swelling, mouth swelling, throat swelling, tongue swelling or hives EXAM Physical Exam Const Vital Signs: 10/18/21 19:28 10/18/21 21:00 10/18/21 21:11 Temperature 97.6 F L Temperature Source Temporal Pulse Rate 96 Respiratory Rate 17 Respiratory Effort Normal Non-Labored Respiratory Depth Normal Respiratory Pattern Normal Blood Pressure 149/68 H Blood Pressure Mean 95 Pulse Ox 93 86 Oxygen Delivery Method Room Air Room Air Room Air Oxygen Flow Rate (L/min) 10/18/21 22:01 10/18/21 22:24 Temperature Temperature Source Pulse Rate Respiratory Rate Respiratory Effort Respiratory Depth Respiratory Pattern Blood Pressure 140/70 H Blood Pressure Mean 93 Pulse Ox 94 96 Oxygen Delivery Method Nasal Cannula Nasal Cannula Oxygen Flow Rate (L/min) 2 2 Positive well nourished and well developed General Appearance ED: well developed and NAD HEENT Reports TM's clear and moist mucous membranes normocephalic and atraumatic; Negative for trauma or tenderness Tympanic Membrane ED: Yes TM's clear Eyes PERRL and EOMs intact bilaterally General Eye ED: Negative for pale conjunctiva or scleral icterus Neck no lymphadenopathy, supple and no JVD General: Negative for tenderness Chest Wall inspection of chest normal and palpation of chest normal Chest: Negative for tenderness Resp normal respiratory effort and clear to auscultation bilaterally Effort and Inspection: Negative for respiratory distress or pain with movement Auscultation: Negative for rhonchi, wheezes or diminished lung sounds Cardio regular rate, regular rhythm, S1 normal heart sound, S2 normal heart sound and no murmurs Peripheral Pulses: pulses 2+ throughout GI normal to inspection, nondistended, normoactive bowel sounds, soft to palpation, non-tender, non-distended and no masses Back/Spine no CVA tenderness and no thoracic nor lumbar tenderness Extremity normal to inspection General Extremety ED: Negative for edema General Extremity: Negative for edema Neuro oriented x3, CN's II-XII intact bilaterally, no sensory deficits noted and gait normal Sensorium / Orientation: awake, alert, oriented to person, oriented to place and oriented to time Motor Exam: strength 5/5 throughout and strength abnormal Psych mental status grossly normal Skin no rashes or lesions noted and no wounds MDM MDM MDM Narrative Medical decision making narrative: IV line established on arrival. Patient was noted to have low O2 sat on 86% on room air and was placed on nasal cannula O2. Patient received Decadron 6 mg p.o. Case will be discussed with hospitalist evaluate for admission. Lab Data Attestation: I reviewed the patient's lab results. Labs: Laboratory Results - last 24 hr 10/18/21 10/18/21 10/18/21 20:56 20:56 20:56 WBC 5.9 RBC 5.13 Hgb 14.6 Hct 43.8 MCV 85.4 MCH 28.5 MCHC 33.3 RDW Std Deviation 42.2 RDW Coeff of Phoebe 13.2 Plt Count 127 L MPV 11.5 Immature Gran % (Auto) 0.500 Neut % (Auto) 77.5 H Lymph % (Auto) 10.4 L [place] % (Auto) 11.4 H Eos % (Auto) 0.0 Baso % (Auto) 0.2 Absolute Neuts (auto) 4.5 Absolute Lymphs (auto) 0.61 L Nucleated RBC % 0 Sodium 143 Potassium 3.0 L Chloride 107 Carbon Dioxide 29.0 Anion Gap 7 BUN 17 Creatinine 0.88 Estim Creat Clear Calc 56.50 Est GFR (MDRD) Af Amer 83 Est GFR (MDRD) Non-Af 69 BUN/Creatinine Ratio 19.3 Glucose 118 H Lactic Acid 1.3 Calcium 8.6 Radiography Diagnostic Testing: Clinical Impression(s) from Imaging Studies Chest X-Ray 10/18/21 19:47 IMPRESSION: 1. Subtle left perihilar airspace disease likely representing pneumonia. Follow-up chest x-ray in 6 weeks to ensure resolution is recommended. Electronically Signed: Parrish García DO at 20:13 EST Tel , Service support , 1 view chest x-ray obtained interpreted by myself as bibasilar infiltrates. Radiology felt patient had stable left perihilar airspace disease likely representing pneumonia. EKG Initial EKG: Attestation: I personally reviewed and interpreted this EKG as follows: Comments: Sinus rhythm with a ventricular rate of [address] changes Discharge Plan Dx/Rx/DC Orders Clinical Impression: COVID-19, Hypoxemia, Weakness, Adult failure to thrive Disposition Disposition: Acute Care [facility]
[2021-10-18 21:00] VITALS: O2SAT 86
[2021-10-18] MEDS: 0.9% Normal Saline 1,000 ML 150 ML IV (21:05)
[2021-10-18] MEDS: dexAMETHasone 4 MG Tablet 6 MG PO (21:06)
[2021-10-18 21:10] LABS: Absolute Lymphocyte Count 0.61 X10^3/uL (0.83-4.51); Absolute Neutrophil Count 4.5 X10^3/uL (2.0-7.7); Basophil# 0.01 X10^3/uL; Basophil% 0.2 % (0-1); Hematocrit 43.8 % (37-47); Hemoglobin 14.6 g/dL (12.0-15.0); Lymphocyte # 0.61 X10^3/ul (0.83-4.51); Lymphocyte % 10.4 % (19-41); Mean Corp Hgb Conc 33.3 g/dL (32-36); Mean Corpuscular Hgb 28.5 pg (27.0-32.0); Mean Corpuscular Volume 85.4 fL (81-99); Mean Platelet Vol. 11.5 fl (6.2-12.0); Monocyte# 0.67 X10^3/uL; Monocyte% 11.4 % (0-10); NRBC Flagged by Analyzer 0 % (0-5); Neutrophil # 4.54 X10^3/uL (2.7-7.7); Neutrophil % 77.5 % (47-70); Platelet Count 127 K/mm3 (150-450); RBC Distribution Width CV 13.2 % (11.6-14.6); RBC Distribution Width SD 42.2 fl (35.1-43.9); Red Blood Count 5.13 M/mm3 (4.2-5.4); White Blood Count 5.9 K/mm3 (4.4-11.0)
[2021-10-18 21:11] VITALS: O2SAT 93
[2021-10-18 21:20] LABS: Anion Gap 7 (5-15); BUN 17 mg/dL (7-18); BUN/Creat Ratio 19.3 RATIO (10-20); Calcium,Total 8.6 mg/dL (8.5-10.1); Chloride 107 mmol/L (98-107); Creatinine, Serum 0.88 mg/dL (0.55-1.02); EST Glomerular Filtration Rate 69 mL/min (>60); Est Glom Filt Rate - Afr Amer 83 mL/min (>60); Glucose 118 mg/dL (74-106); Sodium Level 143 mmol/L (136-145)
[2021-10-18 21:30] LABS: Lactic Acid 1.3 mmol/L (0.4-1.9)
[2021-10-18 22:01] VITALS: O2SAT 94
--- NOTE | 2021-10-18 22:02 | ED.RN ---
PT. WAS 86% ON ROOM AIR WHILE SLEEPING. PT. PULLED UP IN BED AND REPOSITIONED. NO IMPROVEMENT. PT. PLACED ON 2L OXYGEN.
[2021-10-18 22:24] VITALS: BP 140/70; O2SAT 96
--- NOTE | 2021-10-18 23:51 | PCM.HP.STD ---
HPI - General General Date of Admission: 10/18/21 Date of Service: 10/18/21 Chief Complaint: Hypoxia HPI Narrative CHANDANA HERMAN, is a 61 F with a significant history of dementia and DVT who presents to emergency department with hypoxia x1 day. Patient has dementia so history was taken from patient daughter who was at the bedside. Patient had a Covid-like symptoms that started 6 days ago. Daughter described a Covid-like symptoms as intermittent cough; rhinorrhea; fever of 101 Fahrenheit; fatigue; chills; fatigue and weakness. Also daughter states the patient has been wobbly on her feet. On the day of presentation because patient oxygen saturation was 85% so her daughter made her come to the hospital. Her daughter is looking to send patient to a penitentiary for rehabilitation. [facility] Medical History Dementia DVT (deep venous thrombosis) Home Medications aspirin 81 mg PO DAILY@0800 11/16/19 [History Last Taken 12/31/19] rivaroxaban 15 mg PO BID #19 tab 01/01/20 [Rx Last Taken Unknown] rivaroxaban 20 mg PO DAILY #30 tab 01/01/20 [Rx Last Taken Unknown] cephalexin 500 mg PO Q6 #40 capsule 09/13/21 [Rx Last Taken Unknown] furosemide [Lasix] 40 mg PO DAILY #7 tab 09/13/21 [Rx Last Taken Unknown] Allergy/AdvReac Type Severity Reaction Status Date / Time No Known Allergies Allergy Verified 09/13/21 15:31 Family History Other Diabetes Surgical History unable to obtain unable to obtain (Patient has dementia and does not answer question. Daughter who was at bedside did not know.) Social History Smoking Status: Never smoker substance use type: does not use ROS Review of Systems ROS Unobtainable: due to mental condition Vital Signs Vital Signs Vital Signs: 10/18/21 19:28 10/18/21 21:00 10/18/21 21:11 Temperature 97.6 F L Temperature Source Temporal Pulse Rate 96 Respiratory Rate 17 Respiratory Effort Normal Non-Labored Respiratory Depth Normal Respiratory Pattern Normal Blood Pressure 149/68 H Blood Pressure Mean 95 Pulse Ox 93 86 Oxygen Delivery Method Room Air Room Air Room Air Oxygen Flow Rate (L/min) 10/18/21 22:01 10/18/21 22:24 Temperature Temperature Source Pulse Rate Respiratory Rate Respiratory Effort Respiratory Depth Respiratory Pattern Blood Pressure 140/70 H Blood Pressure Mean 93 Pulse Ox 94 96 Oxygen Delivery Method Nasal Cannula Nasal Cannula Oxygen Flow Rate (L/min) 2 2 Weight Weight: 81.647 kg Body Mass Index (BMI) 30.9 Physical Exam Narrative Physical exam: General: Well-nourished, well-developed. Head: Normocephalic, atraumatic, no tenderness Eyes: PERRLA, EOMI ENT, no trauma, moist mucous membranes, no rhinorrhea Neck: Nontender, full range of motion, no spinal tenderness, deformities, step-off CVS: Regular rate and rhythm. S1-S2 present. No murmur, gallop or rub. Respiratory : clear to auscultation bilaterally, chest wall nontender, no wheezing Abdomen: Soft, nontender, nondistended, normal bowel sounds, no masses : Deferred Back: Nontender, no CVA tenderness, no midline spinal tenderness, deformities, step-offs Extremities: Nontender full range of motion, no trauma Skin: Normal color, no trauma, abrasions Neuro: Lethargic. Patient does not answer questions to determine mental status. Psychiatry: Flat affect. Not anxious. Results Lab / Micro Data Result Diagrams: 10/18/21 20:56 10/18/21 20:56 Labs: Laboratory Results - last 24 hr 10/18/21 20:56: WBC 5.9, RBC 5.13, Hgb 14.6, Hct 43.8, MCV 85.4, MCH 28.5, MCHC 33.3, RDW Std Deviation 42.2, RDW Coeff of Phoebe 13.2, Plt Count 127 L, MPV 11.5, Immature Gran % (Auto) 0.500, Neut % (Auto) 77.5 H, Lymph % (Auto) 10.4 L, [place] % (Auto) 11.4 H, Eos % (Auto) 0.0, Baso % (Auto) 0.2, Absolute Neuts (auto) 4.5, Absolute Lymphs (auto) 0.61 L, Nucleated RBC % 0 10/18/21 20:56: Sodium 143, Potassium 3.0 L, Chloride 107, Carbon Dioxide 29.0, Anion Gap 7, BUN 17, Creatinine 0.88, Estim Creat Clear Calc 56.50, Est GFR (MDRD) Af Amer 83, Est GFR (MDRD) Non-Af 69, BUN/Creatinine Ratio 19.3, Glucose 118 H, Calcium 8.6 10/18/21 20:56: Lactic Acid 1.3 Radiology Impression Chest X-Ray 10/18/21 19:47 IMPRESSION: 1. Subtle left perihilar airspace disease likely representing pneumonia. Follow-up chest x-ray in 6 weeks to ensure resolution is recommended. Electronically Signed: Parrish García, DO at 20:13 EST Tel , Service support , Assessment & Plan Assessment/Plan (1) COVID-19: (2) Respiratory failure with hypoxia: QUALIFIERS: Chronicity: acute Qualified Code(s): J96.01 - Acute respiratory failure with hypoxia PLAN: Acute hypoxemic respiratory failure secondary to SARS- COV 2 Reportedly her oxygen saturation was 85% on room air falls at home. At the emergency department is a documented oxygen saturation of 86%. Placed on nasal cannula oxygen to emergency department and continued. Review of records shows positive rapid Covid antigen on specimen collected on 10/18/2021. Actual chest x-ray image was independently interpreted . Perihilar infiltrates noted. Procalcitonin was ordered. Received Decadron emergency department and continued. Emergent department labs reviewed showed a creatinine clearance of more than 30. Will check LFTs. If LFTs is appropriate we will consider starting patient on remdesivir. Tylenol for fever ordered. Guaifenesin as needed ordered. Debility PT and OT to work with patient for strengthening balance training. field marketing manager consult for disposition. Of note family is hoping that patient can get into a [facility] facility for rehabilitation. Hypokalemia Review of emergent department labs showed potassium of 3.0. I repeat the supplementation ordered in the ED. Trend CMP. Check magnesium. History of DVT: Continue home Xarelto. Charges/Coding Visit Charges Inpatient E&M: 03766 Init Hosp L2
[2021-10-19] VITALS (10 sets, daily range): BP systolic 119–139; BP diastolic 64–74; PULSE 61–75; RESP 15–20; TEMP 35.9–36.6; O2SAT 92–95; BMI 33.7
[2021-10-19] MEDS: Potassium Chloride 10mEq/100mL 10 MEQ/100 ML IV.SOLN. 100 MEQ IV BOLUS ×4 (00:11→04:13)
[2021-10-19 00:58] LABS: AST(SGOT) 57 U/L (15-37); Alanine Aminotransfer ALT/SGPT 58 U/L (13-56); Albumin, Serum 3.1 g/dL (3.2-5.0); Alkaline Phosphatase 59 U/L (45-117); Globulin 3.8 g/dL (2.2-4.2); Protein, Total 6.9 g/dL (6.4-8.2)
[2021-10-19] MEDS: 0.9% Saline Lock 10 ML Syringe IV ×4 (04:14→19:01)
[2021-10-19 07:32] LABS: Absolute Lymphocyte Count 0.44 X10^3/uL (0.83-4.51); Absolute Neutrophil Count 3.2 X10^3/uL (2.0-7.7); Basophil# 0.01 X10^3/uL; Basophil% 0.2 % (0-1); Hemoglobin 13.1 g/dL (12.0-15.0); Lymphocyte # 0.44 X10^3/ul (0.83-4.51); Lymphocyte % 10.8 % (19-41); Mean Corp Hgb Conc 33.6 g/dL (32-36); Mean Corpuscular Volume 86.5 fL (81-99); Mean Platelet Vol. 11.7 fl (6.2-12.0); Monocyte# 0.38 X10^3/uL; Monocyte% 9.3 % (0-10); NRBC Flagged by Analyzer 0 % (0-5); Neutrophil # 3.23 X10^3/uL (2.7-7.7); Neutrophil % 79.2 % (47-70); POSITIVE DIFFERENTIAL YES; Platelet Count 119 K/mm3 (150-450); RBC Distribution Width CV 13.6 % (11.6-14.6); RBC Distribution Width SD 43.3 fl (35.1-43.9); Red Blood Count 4.51 M/mm3 (4.2-5.4); White Blood Count 4.1 K/mm3 (4.4-11.0)
[2021-10-19 08:06] LABS: ALB/GLOB Ratio 0.8 RATIO (0.9-2.4); AST(SGOT) 43 U/L (15-37); Alanine Aminotransfer ALT/SGPT 49 U/L (13-56); Albumin, Serum 2.5 g/dL (3.2-5.0); Alkaline Phosphatase 49 U/L (45-117); Anion Gap 7 (5-15); BUN 14 mg/dL (7-18); BUN/Creat Ratio 23.9 RATIO (10-20); Calcium,Total 7.8 mg/dL (8.5-10.1); Chloride 111 mmol/L (98-107); Creatinine, Serum 0.59 mg/dL (0.55-1.02); EST Glomerular Filtration Rate 110 mL/min (>60); Est Glom Filt Rate - Afr Amer 133 mL/min (>60); Estimated Creatinine Clearance 84.28 ml/min; Globulin 3.2 g/dL (2.2-4.2); Glucose 128 mg/dL (74-106); Magnesium 2.4 mg/dL (1.6-2.6); Potassium 3.4 mmol/L (3.5-5.1); Protein, Total 5.7 g/dL (6.4-8.2); Sodium Level 144 mmol/L (136-145)
[2021-10-19 08:07] LABS: Procalcitonin 0.07 ng/mL (0.00-0.09)
[2021-10-19 08:18] LABS: Differential Indicated SCAN CRITERIA MET
[2021-10-19] MEDS: Nystatin Powder 15gm Bottle 1 APPLIC TOPICAL ×2 (09:34→21:09)
[2021-10-19 10:23] LABS: Differential Comment SCANNED
--- NOTE | 2021-10-19 10:53 | PCS.PANDOC ---
PANDEMIC DOCUMENTATION INITIATED: Date: 10/19/2021 Time: 004
[2021-10-19] MEDS: dexAMETHasone 10 MG/ML Vial 6 MG IV (11:37)
[2021-10-19] MEDS: Rivaroxaban 20 MG Tablet PO (14:25)
--- NOTE | 2021-10-19 14:50 | CASEMGMT ---
FABIAN BERMUDEZ Assessment: TC to pt dtr Amelia Faby as pt is A&O x1 for initial transition planning/care coordination assessment. FABIAN BERMUDEZ introduced self and role at [facility], pt dtr voices understanding and consents to assessment. Care providers, pharmacy, and demographics verified/updated. Admitting Dx: acute hypoxemic resp failure second to COVID 19 PCP:Pt PCP was Kiran but he has left the practice. Pt has not yet been assigned another physician but will stay with [facility]. Specialists:None Preferred Pharmacy: [facility] Insurance: MMO Prescription Benefit: yes LW/HPOA: Pt dtr states pt does not have LW/DPOA but they are in the process of getting guardianship for pt. The guardian will be pt sister Adeola Love. LNOK: Adeola Love, sister; Amelia Hobbs, dtr Living Arrangements: Pt lives with dtr in a single story house with 2 steps to enter. Pt needs assistance with bathing and dressing and dtr assists. Transportation: Pt dtr transports pt to medical appts. DME/HHC/SNF: Pt does not have any DME in the home. Pt has began to become weaker since having COVID. Pt has no previous HHC or SNF stays. Pt was first tested at [facility]. Provided pt dtr with FABIAN BERMUDEZ email address to forward positive test to. Pt dtr reports they would like [place] to go to a SNF at [place]. She states they have chosen [facility]. She denies need for a local in network list with star ratings. Notified Nguyen LEÓN of this. CM to follow. Advised pt to ask CM if any further question/concerns/needs arise, voices understanding. Pt Dtr Goal: [facility] Plan: TBD
--- NOTE | 2021-10-19 16:35 | PCM.PN.HOSP ---
Subjective Subjective Patient was seen and examined today, she is nonverbal, she does not appear to be in any distress. Patient is currently on 2 L of oxygen via nasal cannula. Objective Data Objective Data Vital Signs: Vital Signs Temp Pulse Resp BP Pulse Ox 97.2 F L 71 16 139/72 H 95 10/19/21 16:15 10/19/21 16:15 10/19/21 16:15 10/19/21 16:15 10/19/21 16:15 Oxygen Flow Rate (L/min) 2 Oxygen Delivery Method Nasal Cannula Weight: 89.5 kg Body Mass Index (BMI) 33.7 Intake & Output: Intake and Output for Last 24 Hours 10/17/21 10/18/21 10/19/21 23:59 23:59 23:59 Intake Total 1650 / 1650 Output Total 100 / 100 Balance 1550 / 1550 Lab / Micro Data Result Diagrams: 10/19/21 06:00 10/19/21 06:00 Labs: Laboratory Results - last 24 hr 10/18/21 20:56: WBC 5.9, RBC 5.13, Hgb 14.6, Hct 43.8, MCV 85.4, MCH 28.5, MCHC 33.3, RDW Std Deviation 42.2, RDW Coeff of Phoebe 13.2, Plt Count 127 L, MPV 11.5, Immature Gran % (Auto) 0.500, Neut % (Auto) 77.5 H, Lymph % (Auto) 10.4 L, [place] % (Auto) 11.4 H, Eos % (Auto) 0.0, Baso % (Auto) 0.2, Absolute Neuts (auto) 4.5, Absolute Lymphs (auto) 0.61 L, Nucleated RBC % 0 10/18/21 20:56: Sodium 143, Potassium 3.0 L, Chloride 107, Carbon Dioxide 29.0, Anion Gap 7, BUN 17, Creatinine 0.88, Estim Creat Clear Calc 56.50, Est GFR (MDRD) Af Amer 83, Est GFR (MDRD) Non-Af 69, BUN/Creatinine Ratio 19.3, Glucose 118 H, Calcium 8.6 10/18/21 20:56: Lactic Acid 1.3 10/18/21 20:56: Total Bilirubin 0.90, Direct Bilirubin 0.40 H, AST 57 H, ALT 58 H, Alkaline Phosphatase 59, Total Protein 6.9, Albumin 3.1 L, Globulin 3.8 10/19/21 06:00: Procalcitonin 0.07 10/19/21 06:00: WBC 4.1 L, RBC 4.51, Hgb 13.1, Hct 39.0, MCV 86.5, MCH 29.0, MCHC 33.6, RDW Std Deviation 43.3, RDW Coeff of Phoebe 13.6, Plt Count 119 L, MPV 11.7, Immature Gran % (Auto) 0.500, Neut % (Auto) 79.2 H, Lymph % (Auto) 10.8 L, [place] % (Auto) 9.3, Eos % (Auto) 0.0, Baso % (Auto) 0.2, Absolute Neuts (auto) 3.2, Absolute Lymphs (auto) 0.44 L, Nucleated RBC % 0, Differential Comment SCANNED, Diff Path Review March10/19/21 06:00: Sodium 144, Potassium 3.4 L, Chloride 111 H, Carbon Dioxide 26.0, Anion Gap 7, BUN 14, Creatinine 0.59, Estim Creat Clear Calc 84.28, Est GFR (MDRD) Af Amer 133, Est GFR (MDRD) Non-Af 110, BUN/Creatinine Ratio 23.9 H, Glucose 128 H, Calcium 7.8 L, Magnesium 2.4, Total Bilirubin 0.60, AST 43 H, ALT 49, Alkaline Phosphatase 49, Total Protein 5.7 L, Albumin 2.5 L, Globulin 3.2, Albumin/Globulin Ratio 0.8 L Micro: Microbiology 10/18/21 23:20 Nasal Secretion SARS-CoV-2 Antigen (Rapid) - Final Radiography Diagnostic Testing: Radiology Impression Chest X-Ray 10/18/21 19:47 IMPRESSION: 1. Subtle left perihilar airspace disease likely representing pneumonia. Follow-up chest x-ray in 6 weeks to ensure resolution is recommended. Electronically Signed: Parrish García DO at 20:13 EST Tel , Service support , Physical Exam Const alert, oriented x3 and no apparent distress Constitutional Narrative: Patient does not respond to verbal commands and she is nonverbal. Patient is alert General Appearance: cooperative, well kempt and well developed Orientation / Consciousness: awake, oriented to person, oriented to place and oriented to time HEENT normocephalic, head/scalp atraumatic and moist oral mucous membranes Head and Scalp: normocephalic Eyes PERRL, EOMs intact bilaterally and conjunctivae normal Neck nuchal rigidity, supple, no JVD, thyroid normal and no carotid bruits General: trachea midline Resp normal respiratory effort, no retractions, no use of accessory muscles and clear to auscultation bilaterally Auscultation: Negative for rales, rhonchi or wheezes Cardio regular rate, regular rhythm, S1 normal heart sound, S2 normal heart sound, no murmurs, no rub and no gallops GI normal to inspection, nondistended, normoactive bowel sounds, soft to palpation, non-tender and non-distended Extremity normal to inspection and no clubbing, cyanosis or edema Skin no rashes or lesions noted General Skin Exam: no breakdown Neuro CN's II-XII intact bilaterally, no focal motor deficits and no sensory deficits noted Sensorium / Orientation: awake and alert Psych thought process normal Psych Narrative: Patient is alert, she does not respond to verbal commands, she does not speak Assessment & Plan Assessment/Plan (1) Respiratory failure with hypoxia: QUALIFIERS: Chronicity: acute Qualified Code(s): J96.01 - Acute respiratory failure with hypoxia PLAN: 1. COVID-19 pneumonia-patient will continue on remdesivir and dexamethasone #2 acute hypoxic respiratory failure secondary to #1-pulse ox will be monitored #3 Alzheimer's dementia #4 chronic anticoagulation with Xarelto secondary to past history of DVT Charges/Coding Visit Charges Inpatient E&M: 84246 Subs Hosp L2
[2021-10-19] MEDS: 0.9% Normal Saline 1,000 ML 500 ML IV (19:01)
[2021-10-20] VITALS (8 sets, daily range): BP systolic 126–134; BP diastolic 61–81; PULSE 57–75; RESP 16–18; TEMP 36.1–36.6; O2SAT 89–95
[2021-10-20] MEDS: Nystatin Powder 15gm Bottle 1 APPLIC TOPICAL ×2 (08:23→21:09)
[2021-10-20] MEDS: dexAMETHasone 10 MG/ML Vial 6 MG IV (08:27)
[2021-10-20] MEDS: 0.9% Saline Lock 10 ML Syringe IV (08:27)
--- NOTE | 2021-10-20 12:12 | NURSING ---
offered drink of water pt refused to open mouth
--- NOTE | 2021-10-20 17:41 | PCM.PN.HOSP ---
Subjective Subjective Patient was seen and examined today, she remains nonverbal, she is refusing oral intake. I have decided to place her on IV fluids today, family will have to decide how aggressive to get with alternate methods of feeding if necessary. Objective Data Objective Data Vital Signs: Vital Signs Temp Pulse Resp BP Pulse Ox 97.2 F L 75 16 134/73 H 92 10/20/21 15:16 10/20/21 15:16 10/20/21 15:16 10/20/21 15:16 10/20/21 15:16 Oxygen Flow Rate (L/min) 2 Oxygen Delivery Method Room Air Weight: 89.5 kg Body Mass Index (BMI) 33.7 Intake & Output: Intake and Output for Last 24 Hours 10/18/21 10/19/21 10/20/21 23:59 23:59 23:59 Intake Total 2680 / 2930 250 / 250 Output Total 200 / 200 850 / 850 Balance 2480 / 2730 -600 / -600 Lab / Micro Data Result Diagrams: 10/19/21 06:00 10/19/21 06:00 Micro: Microbiology 10/18/21 23:20 Nasal Secretion SARS-CoV-2 Antigen (Rapid) - Final SARS-CoV-2 (COVID 19) Physical Exam Const alert and no apparent distress Constitutional Narrative: Patient is nonverbal General Appearance: cooperative, well kempt and well developed Orientation / Consciousness: awake, oriented to person, oriented to place and oriented to time HEENT normocephalic and moist oral mucous membranes Eyes PERRL, EOMs intact bilaterally and conjunctivae normal Neck nuchal rigidity, supple, no JVD and thyroid normal General: trachea midline Resp normal respiratory effort, no retractions, no use of accessory muscles and clear to auscultation bilaterally Auscultation: Negative for rales, rhonchi or wheezes Cardio regular rate, regular rhythm, S1 normal heart sound, S2 normal heart sound, no murmurs, no rub and no gallops GI normal to inspection, nondistended, normoactive bowel sounds, soft to palpation, non-tender and non-distended Extremity no clubbing, cyanosis or edema Skin no rashes or lesions noted General Skin Exam: no breakdown Neuro CN's II-XII intact bilaterally Neuro Narrative: Patient is alert but nonverbal Sensorium / Orientation: awake and alert Psych thought process normal Psych Narrative: Patient is alert but nonverbal Assessment & Plan Assessment/Plan (1) COVID-19: PLAN: 1. COVID-19 pneumonia-patient is currently on room air, current treatment will continue #2 acute hypoxic respiratory failure secondary to COVID-19 pneumonia-patient is currently on room air at this time #3 dementia #4 failure to thrive-patient's family will have to decide whether they want alternate methods of feeding, I did not discuss this with them today due to time restraints. I did have a conversation with the patient's daughter yesterday and they wanted the patient to be a full code if she had a respiratory arrest or cardiac arrest. I have elected not to place the patient on anticoagulation at this time, she is not taking her Xarelto. Charges/Coding Visit Charges Inpatient E&M: 38835 Subs Hosp L2
[2021-10-20] MEDS: 0.9% Normal Saline 1,000 ML 100 ML IV (18:08)
[2021-10-21 02:57] VITALS: BP 151/81; PULSE 71; RESP 18; TEMP 36.2; O2SAT 92
[2021-10-21] MEDS: 0.9% Normal Saline 1,000 ML 100 ML IV ×3 (03:05→22:27)
[2021-10-21 07:18] LABS: Absolute Lymphocyte Count 0.92 X10^3/uL (0.83-4.51); Absolute Neutrophil Count 6.4 X10^3/uL (2.0-7.7); Basophil# 0.01 X10^3/uL; Basophil% 0.1 % (0-1); Hematocrit 43.3 % (37-47); Hemoglobin 14.3 g/dL (12.0-15.0); Lymphocyte # 0.92 X10^3/ul (0.83-4.51); Lymphocyte % 11.3 % (19-41); Mean Corpuscular Hgb 28.8 pg (27.0-32.0); Mean Corpuscular Volume 87.1 fL (81-99); Mean Platelet Vol. 12.1 fl (6.2-12.0); Monocyte# 0.69 X10^3/uL; Monocyte% 8.5 % (0-10); NRBC Flagged by Analyzer 0 % (0-5); Neutrophil # 6.43 X10^3/uL (2.7-7.7); Neutrophil % 79.1 % (47-70); Platelet Count 152 K/mm3 (150-450); RBC Distribution Width SD 41.2 fl (35.1-43.9); Red Blood Count 4.97 M/mm3 (4.2-5.4); White Blood Count 8.1 K/mm3 (4.4-11.0)
[2021-10-21 07:36] VITALS: O2SAT 93
[2021-10-21 07:57] LABS: ALB/GLOB Ratio 0.8 RATIO (0.9-2.4); AST(SGOT) 47 U/L (15-37); Alanine Aminotransfer ALT/SGPT 61 U/L (13-56); Albumin, Serum 2.6 g/dL (3.2-5.0); Alkaline Phosphatase 59 U/L (45-117); Anion Gap 5 (5-15); BUN 17 mg/dL (7-18); BUN/Creat Ratio 31.4 RATIO (10-20); Calcium,Total 8.3 mg/dL (8.5-10.1); Chloride 114 mmol/L (98-107); Creatinine, Serum 0.54 mg/dL (0.55-1.02); EST Glomerular Filtration Rate 121 mL/min (>60); Est Glom Filt Rate - Afr Amer 146 mL/min (>60); Estimated Creatinine Clearance 92.08 ml/min; Globulin 3.3 g/dL (2.2-4.2); Glucose 91 mg/dL (74-106); Protein, Total 5.9 g/dL (6.4-8.2); Sodium Level 144 mmol/L (136-145)
[2021-10-21] MEDS: dexAMETHasone 10 MG/ML Vial 6 MG IV (08:13)
[2021-10-21] MEDS: Nystatin Powder 15gm Bottle 1 APPLIC TOPICAL ×2 (08:14→21:00)
[2021-10-21 08:16] VITALS: BP 150/76; PULSE 75; RESP 18; TEMP 36.9; O2SAT 92
--- NOTE | 2021-10-21 10:43 | CASEMGMT ---
Addendum entered by Katelin Díaz 10/21/21 12:14: ROMELIA received call from Paige at [facility] stating out's out of network benefits are as followed. Pt has to meet $5,000 deductible private pay and then pt's insurance would pay 50% of contracted rate with [facility]. Paige states pt could come private pay and then apply for Medicaid. ROMELIA informed Paige that this worker will update pt's daughter Amelia. ROMELIA placed a call to pt's daughter Amelia. ROMELIA introduced self and role at [facility]. ROMELIA informed Amelia that [facility] is willing to review referral, even with pt being COVID+, but informed Amelia that [facility] is not in network with pt's insurance. ROMELIA informed Amelia that pt would need to pay privately until $5,000 deductible is met or pt applies and gets approved for Medicaid. Amelia asked for other SNF options. Patient was provided a list of SNF providers including quality and resource use data and consistent with the patient?s preferred geographic region, medical needs, and insurance network. ROMELIA informed Amelia that the only SNF in [facility] that may consider pt being COVID+ is [facility]. Amelia states she wanted [facility] for their Memory Care Unit and would like to proceed with pt going to [facility]. ROMELIA informed Amelia that [facility] will likely reach out to her to go over financial, sign paperwork, etc. Amelia states that they are in the process of getting Guardianship for pt and pt's guardian would be pt's sister. ROMELIA informed Amelia that until guardianship is complete, it would go to pt's daughter to make HealthCare decisions. Amelia states she does have a sister. ROMELIA informed Amelia that it would go to both of them to make healthcare decisions for pt unless pt has a spouse. Per demographics, pt is . ROMELIA placed a call to Paige at [facility] and updated her that pt's daughter is still requesting [facility]. Paige states she will review referral, will reach out to pt's daughter. Paige states that if pt comes private pay then she will not need pre-cert. Paige states she will review referral and then let this worker know. ROMELIA faxed referral to [facility]. Plan: [facility] pending acceptance Original Note: Social Work Note ROMELIA reviewed chart. Pt admitted 10/18/2021. Pt had COVID symptoms 6 days prior to being admitted to [facility] and had a positive COVID test two days before being admitted. Pt's daughter is requesting [facility] at discharge. ROMELIA placed a call to Paige at [facility]. They are willing to review pt's that are 10 days after symptoms started. ROMELIA spoke with Paige regarding referral. Paige states they would review referral, but states they do not take pt's insurance. ROMELIA faxed insurance information to Paige at [facility]. ROMELIA received message from Paige at [facility] stating she reviewed pt's out of network benefits, requested this worker call her back to discuss out of network benefits. ROMELIA placed a call to Paige at [facility] and left message requesting call back. ROMELIA waiting for call back. Plan: SNF pending acceptance and pre-cert Katelin Díaz CROCODILE FARMER, CONSOLE OPERATOR
[2021-10-21 11:46] VITALS: BP 146/91; PULSE 73; RESP 18; TEMP 36.3; O2SAT 92
--- NOTE | 2021-10-21 13:15 | CASEMGMT ---
Social Work Note ROMELIA received call from Paige at [facility] stating [facility] can accept pt tomorrow. Paige states that she will be calling pt's daughter to discuss financials. ROMELIA asked Paige to call this worker back once financials are confirmed with pt's daughter. Plan: [facility]
[2021-10-21 14:09] VITALS: BP 135/69; PULSE 69; RESP 16; TEMP 36.6; O2SAT 93
--- NOTE | 2021-10-21 17:22 | PCM.PN.HOSP ---
Subjective Subjective Patient was hard to open her eyes. After some time she open eyes on external manipulation. She has loss of appetite, failure to thrive. I talked to the patient's daughter. Objective Data Objective Data Vital Signs: Vital Signs Temp Pulse Resp BP Pulse Ox 97.8 F 69 16 135/69 H 93 10/21/21 14:09 10/21/21 14:09 10/21/21 14:09 10/21/21 14:09 10/21/21 14:09 Oxygen Flow Rate (L/min) 2 Oxygen Delivery Method Room Air Weight: 197 lb 5.019 oz Body Mass Index (BMI) 33.7 Intake & Output: Intake and Output for Last 24 Hours 10/19/21 10/20/21 10/21/21 23:59 23:59 23:59 Intake Total 2680 / 2930 801.67 / 801.67 1000 / 1000 Output Total 200 / 200 850 / 850 850 / 850 Balance 2480 / 2730 -48.33 / -48.33 150 / 150 Lab / Micro Data Result Diagrams: 10/21/21 06:25 10/21/21 06:25 Labs: Laboratory Results - last 24 hr 10/21/21 06:25: WBC 8.1, RBC 4.97, Hgb 14.3, Hct 43.3, MCV 87.1, MCH 28.8, MCHC 33.0, RDW Std Deviation 41.2, RDW Coeff of Phoebe 13.0, Plt Count 152, MPV 12.1 H, Immature Gran % (Auto) 1.000 H, Neut % (Auto) 79.1 H, Lymph % (Auto) 11.3 L, [place] % (Auto) 8.5, Eos % (Auto) 0.0, Baso % (Auto) 0.1, Absolute Neuts (auto) 6.4, Absolute Lymphs (auto) 0.92, Nucleated RBC % 0 10/21/21 06:25: Sodium 144, Potassium 3.0 L, Chloride 114 H, Carbon Dioxide 25.0, Anion Gap 5, BUN 17, Creatinine 0.54 L, Estim Creat Clear Calc 92.08, Est GFR (MDRD) Af Amer 146, Est GFR (MDRD) Non-Af 121, BUN/Creatinine Ratio 31.4 H, Glucose 91, Calcium 8.3 L, Total Bilirubin 0.80, AST 47 H, ALT 61 H, Alkaline Phosphatase 59, Total Protein 5.9 L, Albumin 2.6 L, Globulin 3.3, Albumin/Globulin Ratio 0.8 L Micro: Microbiology 10/18/21 23:20 Nasal Secretion SARS-CoV-2 Antigen (Rapid) - Final SARS-CoV-2 (COVID 19) Physical Exam Narrative General: Dementia, lack of motivation. Nonverbal. HEENT: Eyes closed. Atraumatic, Normocephalic Oral: No Gingival or Mucosal Lesions/ Ulcerations Neck: Supple, No JVD, Negative Carotid Bruits Lungs: Air entry diminished in bilateral lung bases. No crepitation/rhonchi Cardiovascular: Regular rate, Regular Rhythm, Normal S1, Normal S2, No murmurs Abdomen: Bowel Sounds Present, Soft, Non Tender, Non-Distended : No renal angle tenderness. No suprapubic tenderness. Extremities: No edema, Capillary Refill Less than 3 Seconds Skin: No rashes, No breakdown Musculoskeletal: No Tenderness to Palpation of Joints or Extremities Neurological: Cranial nerves II-XII grossly intact, DTR 2+/4, nonfocal exam Psych/Mental Status: Advanced dementia. Assessment & Plan Assessment/Plan (1) Adult failure to thrive: (2) COVID-19: PLAN: 1. COVID-19 pneumonia-patient is currently on room air, acute hypoxic respiratory failure resolved. Patient was started on IV dexamethasone and remdesivir. As hypoxia resolved, patient does not have any active symptoms of Covid, remdesivir discontinued. Continue Decadron. #2 acute hypoxic respiratory failure secondary to COVID-19 pneumonia-patient is currently on room air at this time #3 Advanced Alzheimer's dementia: Failure to thrive. Nonverbal. No eye contact. #4 failure to thrive-I talked to the patient's daughter and she is concerned about nutritional status. She agreed with the option of PEG tube. I called NELLIE Mcfarland Friend and discussed with him and agreed upon going ahead with the PEG tube after her daughter's consent. Patient not taking Xarelto, last dose was on 10/19. Needs further clarification about CODE STATUS. Charges/Coding Visit Charges Inpatient E&M: 42676 Subs Hosp L2
--- NOTE | 2021-10-21 18:16 | EX.PCM.CON.G ---
HPI Consult Data Date of Consult: 10/21/21 HPI Narrative HPI Narrative: CHANDANA HERMAN, is a 61 F who presened to the emergency department with her daughter with complaint of low oxygen levels at home. Patient was diagnosed with COVID-19 2 days ago but has had symptoms for about 6 days. Daughter states that she had a pulse oximeter at home and her readings today were down to 85% on room air. Patient has dementia and is a poor historian therefore the history comes from the patient's daughter who lives with her. Patient also has history of DVT and is currently on Xarelto. Her last dose of Xarelto was on 10/19/2020. Patient really does not answer questions well. REPLACED BY [facility] Medical History (Updated 10/21/21 @ 18:[address] Raman Soto DO) Dementia DVT (deep venous thrombosis) Home Medications rivaroxaban 20 mg PO DAILY 10/19/21 [History Last Taken 10/17/21] Allergy/AdvReac Type Severity Reaction Status Date / Time No Known Allergies Allergy Verified 09/13/21 15:31 Family History Other Diabetes Surgical History unable to obtain Social History Smoking Status: Never smoker substance use type: does not use ROS ROS Narrative Unable to obtain a review of systems Physical Exam Const alert General Appearance: cooperative Orientation / Consciousness: oriented to person HEENT hearing grossly normal bilaterally Head and Scalp: normal to inspection Face and Sinus: face symmetric Nose: external nose normal Mouth: oral and palatal mucosa normal Eyes conjunctivae normal General Eye: normal appearance of both eyes Neck full ROM General: normal visual inspection Lymph Lymphatic: no lymphadenopathy noted Chest inspection of chest normal and palpation of chest normal Chest: symmetrical chest wall rise Resp normal respiratory effort Effort and Inspection: able to speak in complete sentences Cardio regular rate GI non-distended Percussion: normal to percussion Rectal Exam: deferred Neuro Speech: speech normal Gait (Neuro): normal gait Lab / Micro Data Result Diagrams: 10/21/21 06:25 10/21/21 06:25 Labs: Laboratory Results - last 24 hr 10/21/21 06:25: WBC 8.1, RBC 4.97, Hgb 14.3, Hct 43.3, MCV 87.1, MCH 28.8, MCHC 33.0, RDW Std Deviation 41.2, RDW Coeff of Phoebe 13.0, Plt Count 152, MPV 12.1 H, Immature Gran % (Auto) 1.000 H, Neut % (Auto) 79.1 H, Lymph % (Auto) 11.3 L, [place] % (Auto) 8.5, Eos % (Auto) 0.0, Baso % (Auto) 0.1, Absolute Neuts (auto) 6.4, Absolute Lymphs (auto) 0.92, Nucleated RBC % 0 10/21/21 06:25: Sodium 144, Potassium 3.0 L, Chloride 114 H, Carbon Dioxide 25.0, Anion Gap 5, BUN 17, Creatinine 0.54 L, Estim Creat Clear Calc 92.08, Est GFR (MDRD) Af Amer 146, Est GFR (MDRD) Non-Af 121, BUN/Creatinine Ratio 31.4 H, Glucose 91, Calcium 8.3 L, Total Bilirubin 0.80, AST 47 H, ALT 61 H, Alkaline Phosphatase 59, Total Protein 5.9 L, Albumin 2.6 L, Globulin 3.3, Albumin/Globulin Ratio 0.8 L Assessment & Plan Assessment/Plan (1) Adult failure to thrive: PLAN: Patient's daughter was by of trust and estates attorney wants her to have a feeding tube for nutrition and medications. She is not able to consent due to her Lewy body dementia. I will talk with anesthesia to see when they are comfortable doing the PEG tube. Continue to hold Xarelto and all anticoagulation. (2) Dementia: Charges/Coding Visit Charges Inpatient E&M: 12470 Init Hosp L2
[2021-10-21] MEDS: Potassium Chloride 10mEq/100mL 10 MEQ/100 ML IV.SOLN. 100 MEQ IV BOLUS ×3 (18:43→22:27)
[2021-10-21 20:00] VITALS: BP 119/63; PULSE 58; RESP 18; TEMP 36.4; O2SAT 92
[2021-10-22] VITALS (15 sets, daily range): BP systolic 112–160; BP diastolic 61–99; PULSE 50–86; RESP 16–20; TEMP 35.8–36.6; O2SAT 90–96; BMI 33.7
[2021-10-22 07:15] LABS: Absolute Lymphocyte Count 0.76 X10^3/uL (0.83-4.51); Absolute Neutrophil Count 7.7 X10^3/uL (2.0-7.7); Basophil# 0.01 X10^3/uL; Basophil% 0.1 % (0-1); Eosinophil# 0.01 X10^3/uL; Eosinophils% 0.1 % (0-5); Hematocrit 40.3 % (37-47); Hemoglobin 13.6 g/dL (12.0-15.0); Lymphocyte # 0.76 X10^3/ul (0.83-4.51); Lymphocyte % 8.3 % (19-41); Mean Corp Hgb Conc 33.7 g/dL (32-36); Mean Corpuscular Hgb 28.7 pg (27.0-32.0); Mean Platelet Vol. 12.5 fl (6.2-12.0); Monocyte% 7.6 % (0-10); NRBC Flagged by Analyzer 0 % (0-5); Neutrophil # 7.65 X10^3/uL (2.7-7.7); Neutrophil % 83.1 % (47-70); Platelet Count 124 K/mm3 (150-450); RBC Distribution Width CV 12.9 % (11.6-14.6); RBC Distribution Width SD 40.3 fl (35.1-43.9); Red Blood Count 4.74 M/mm3 (4.2-5.4); White Blood Count 9.2 K/mm3 (4.4-11.0)
[2021-10-22] MEDS: 0.9% Normal Saline 1,000 ML 100 ML IV ×3 (08:04→21:31)
[2021-10-22] MEDS: dexAMETHasone 10 MG/ML Vial 6 MG IV (08:05)
[2021-10-22] MEDS: Nystatin Powder 15gm Bottle 1 APPLIC TOPICAL ×2 (08:06→21:31)
[2021-10-22 09:01] LABS: Pathologist Review Reviewed
--- NOTE | 2021-10-22 09:01 | PN.HOSP_ITS ---
Subjective Subjective Patient seen by GI. Plan for possible EGD today given his scheduling problems. No fever or chills. Objective Data Objective Data Vital Signs: Vital Signs Temp Pulse Resp BP Pulse Ox 97.3 F L 71 18 127/61 H 92 10/22/21 08:08 10/22/21 08:08 10/22/21 08:08 10/22/21 08:08 10/22/21 08:08 Oxygen Flow Rate (L/min) 2 Oxygen Delivery Method Room Air Weight: 197 lb 5.019 oz Body Mass Index (BMI) 33.7 Intake & Output: Intake and Output for Last 24 Hours 10/20/21 10/21/21 10/22/21 23:59 23:59 23:59 Intake Total 801.67 / 801.67 2230 / 2230 961.67 / 961.67 Output Total 850 / 850 850 / 1050 600 / 600 Balance -48.33 / -48.33 1380 / 1180 361.67 / 361.67 Lab / Micro Data Result Diagrams: 10/22/21 06:26 10/21/21 06:25 Labs: Laboratory Results - last 24 hr 10/22/21 06:26: WBC 9.2, RBC 4.74, Hgb 13.6, Hct 40.3, MCV 85.0, MCH 28.7, MCHC 33.7, RDW Std Deviation 40.3, RDW Coeff of Phoebe 12.9, Plt Count 124 L, MPV 12.5 H , Immature Gran % (Auto) 0.800, Neut % (Auto) 83.1 H, Lymph % (Auto) 8.3 L, [place] % (Auto) 7.6, Eos % (Auto) 0.1, Baso % (Auto) 0.1, Absolute Neuts (auto) 7.7, Absolute Lymphs (auto) 0.76 L, Nucleated RBC % 0 Micro: Microbiology 10/18/21 23:20 Nasal Secretion SARS-CoV-2 Antigen (Rapid) - Final SARS-CoV-2 (COVID 19) Physical Exam Narrative General: Dementia, lack of motivation. nonverbal. HEENT: Opened eyes. Moans, incomprehensible sound. Atraumatic, Normocephalic Oral: No Gingival or Mucosal Lesions/ Ulcerations Neck: Supple, No JVD, Negative Carotid Bruits Lungs: Air entry diminished in bilateral lung bases. No crepitation/rhonchi Cardiovascular: Regular rate, Regular Rhythm, Normal S1, Normal S2, No murmurs Abdomen: Bowel Sounds Present, Soft, Non Tender, Non-Distended : No renal angle tenderness. No suprapubic tenderness. Extremities: No edema, Capillary Refill Less than 3 Seconds Skin: No rashes, No breakdown Musculoskeletal: No Tenderness to Palpation of Joints or Extremities Neurological: Cranial nerves II-XII grossly intact, DTR 2+/4, nonfocal exam Psych/Mental Status: Advanced dementia. Assessment & Plan Assessment/Plan (1) Adult failure to thrive: (2) COVID-19: PLAN: 1. COVID-19 pneumonia-patient is currently on room air, acute hypoxic respiratory failure resolved. Patient was started on IV dexamethasone and remdesivir. As hypoxia resolved, patient does not have any active symptoms of Covid, remdesivir discontinued. Continue Decadron. 10/22: Hypokalemia. Potassium is getting replaced. Check serum magnesium and phosphorus and replace accordingly. Plan for EGD today #2 acute hypoxic respiratory failure secondary to COVID-19 pneumonia-patient is currently on room air at this time #3 Advanced Alzheimer's dementia/Lewy body dementia: Failure to thrive. N onverbal. No eye contact. #4 failure to thrive-I talked to the patient's daughter and she is concerned about nutritional status. She agreed with the option of PEG tube. I called NELLIE Soto and discussed with him and agreed upon going ahead with the PEG tube after her daughter's consent. Patient not taking Xarelto, last dose was on 10/19. Needs further clarification about CODE STATUS. Charges/Coding Visit Charges Inpatient E&M: 18393 Subs Hosp L2
--- NOTE | 2021-10-22 09:39 | CASEMGMT ---
Addendum entered by Katelin Díaz 10/22/21 15:09: ROMELIA placed a call to pt's daughter Amelia and updated her that pt has been accepted to [facility], pt can discharge to [facility] when she is medically ready for discharge. Amelia states understanding. Addendum entered by Katelin Díaz 10/22/21 13:55: SW faxed updated clinicals to [facility]. Original Note: Social Work Note Pt is to get PEG tube placed today, will likely discharge to SNF tomorrow. ROMELIA placed a call to Paige at [facility] and updated her. Paige states she has talked to pt's family and they are agreeable to paying privately for SNF. Paige states pt can discharge to [facility] once pt is medically cleared. Plan: [facility] when medically cleared Katelin Díaz HAT CHECKER, ASSOCIATE SOFTWARE ENGINEER
[2021-10-22 11:08] LABS: Anion Gap 6 (5-15); BUN 9 mg/dL (7-18); BUN/Creat Ratio 17.8 RATIO (10-20); Calcium,Total 8.3 mg/dL (8.5-10.1); Chloride 110 mmol/L (98-107); Creatinine, Serum 0.51 mg/dL (0.55-1.02); EST Glomerular Filtration Rate 130 mL/min (>60); Est Glom Filt Rate - Afr Amer 158 mL/min (>60); Glucose 109 mg/dL (74-106); Magnesium 2.2 mg/dL (1.6-2.6); Phosphorus 1.6 mg/dL (2.5-4.9); Sodium Level 140 mmol/L (136-145)
--- NOTE | 2021-10-22 19:28 | NURSING ---
taken to surgery. report given.
--- NOTE | 2021-10-22 20:25 | OP.EGD_ITS ---
Patient Name: Missy Hobbs Procedure Date: 10/22/2021 7:29 PM Date of : 1960 Age: 61 Procedure: Upper GI endoscopy Indications: Place PEG because patient is unable to eat, Place PEG due to dysphagia, Place PEG due to impaired swallowing, Place PEG due to aspiration risk, Place PEG due to neurological disorder causing impaired swallowing Providers: Raman Soto, Medicines: See the Anesthesia note for documentation of the administered medications Patient Profile: This is a 61 year old female. Refer to note in patient chart for documentation of history and physical. Patient has symptoms of dysphagia with both liquids and solids. Complications: No immediate complications. Procedure: Pre-Anesthesia Assessment: - Prior to the procedure, a History and Physical was performed, and patient medications and allergies were reviewed. The patient is competent. The risks and benefits of the procedure and the sedation options and risks were discussed with the patient. All questions were answered and informed consent was obtained. Patient identification and proposed procedure were verified by the physician in the pre-procedure area. Mental Status Examination: alert and oriented. Airway Examination: normal oropharyngeal airway and neck mobility. Respiratory Examination: clear to auscultation. CV Examination: normal. Prophylactic Antibiotics: The patient does not require prophylactic antibiotics. Prior Anticoagulants: The patient has taken no previous anticoagulant or antiplatelet agents. After reviewing the risks and benefits, the patient was deemed in satisfactory condition to undergo the procedure. The anesthesia plan was to use moderate sedation / analgesia (conscious sedation). Immediately prior to administration of medications, the patient was re-assessed for adequacy to receive sedatives. The heart rate, respiratory rate, oxygen saturations, blood pressure, adequacy of pulmonary ventilation, and response to care were monitored throughout the procedure. The physical status of the patient was re-assessed after the procedure. After obtaining informed consent, the endoscope was passed under direct vision. Throughout the procedure, the patient's blood pressure, pulse, and oxygen saturations were monitored continuously. The Endoscope was introduced through the mouth, and advanced to the second part of duodenum. The upper GI endoscopy was accomplished without difficulty. The patient tolerated the procedure well. Moderate Sedation: Moderate (conscious) sedation was personally administered by an anesthesia professional. The following parameters were monitored: oxygen saturation, heart rate, blood pressure, and response to care. Total physician intraservice time was 15 minutes. Scope In: 7:51:32 PM Scope Out: 8:17:06 PM Total Procedure Duration Time 0 hours 25 minutes 34 seconds Findings: A medium-sized hiatal hernia was present. The patient was placed in the supine position for PEG placement. The stomach was insufflated to appose gastric and abdominal wilson. A site was located in the body of the stomach with good transillumination for placement. The abdominal wall was marked and prepped in a sterile manner. The area was anesthetized with 2 mL of 0.5% lidocaine. The trocar needle was introduced through the abdominal wall and into the stomach under direct endoscopic view. A snare was introduced through the endoscope and opened in the gastric lumen. The guide wire was passed through the trocar and into the open snare. The snare was closed around the guide wire. The endoscope and snare were removed, pulling the wire out through the mouth. A skin incision was made at the site of needle insertion. The endoscopically removable 20 Fr EndoVive Safety gastrostomy tube was lubricated. The G-tube was tied to the guide wire and pulled through the mouth and into the stomach. The trocar needle was removed, and the gastrostomy tube was pulled out from the stomach through the skin. The external bumper was attached to the gastrostomy tube, and the tube was cut to remove the guide wire. The final position of the gastrostomy tube was confirmed by relook endoscopy, and skin marking noted to be 4 cm at the external bumper. The final tension and compression of the abdominal wall by the PEG tube and external bumper were checked and revealed that the bumper was moderately tight and mildly deforming the skin and that the PEG balloon was moderately tight and mildly compressing the stomach. The feeding tube was capped, and the tube site cleaned and dressed. The examined esophagus was normal. There was evidence of an intact gastrostomy with a patent G-tube present in the gastric body. The second portion of the duodenum was normal. Impression: - Medium-sized hiatal hernia. - Normal esophagus. - Intact gastrostomy with a patent G-tube present. - Normal second portion of the duodenum. - An endoscopically removable PEG placement was successfully completed. - No specimens collected. Recommendation: - Please follow the post-PEG recommendations including: Nutrition consult for formula and volume, external bolster 1 cm from abdominal wall, external bolster snug to abdominal wall, may place dressing under bumper after day 3, NPO x4 hrs then water today, may use PEG today for meds and water, may use PEG tomorrow for feedings, antibiotic ointment to site, check site for bleeding q 4 hrs, clean site with soap and water daily and dry thoroughly and clean site daily with half-strength hydrogen peroxide for three days, then soap and water daily. - Continue present medications. - The patient has taken no previous anticoagulant or antiplatelet agents. - No aspirin, ibuprofen, naproxen, or other non-steroidal anti-inflammatory drugs for 4 days. Procedure Code(s): --- Professional --- 60189, Esophagogastroduodenoscopy, flexible, transoral; with directed placement of percutaneous gastrostomy tube CPT copyright 2017 [employer]. All rights reserved. The codes documented in this report are preliminary and upon toggle press folder and feeder review may be revised to meet current compliance requirements. Raman Soto DO 10/22/2021 8:25:11 PM This report has been signed electronically. Number of Addenda: 1 Note Initiated On: 10/22/2021 7:29 PM Addendum Number: 1 Addendum Date: 07/16/2022 7:15:32 AM MAC was used instead of moderate sedation for the patient. Raman Soto DO 07/16/2022 7:15:39 AM This report has been signed electronically.
--- NOTE | 2021-10-22 20:26 | OP.CCLET_ITS ---
07/16/2022 Jayson Beck Md Re : Upper GI endoscopy procedure for Missy Hobbs Dear Dr. Beck This procedure was performed on Friday, October 22, 2021. My impressions and recommendations are as follows: Impressions : - Medium-sized hiatal hernia. - Normal esophagus. - Intact gastrostomy with a patent G-tube present. - Normal second portion of the duodenum. - An endoscopically removable PEG placement was successfully completed. - No specimens collected. Recommendations : - Please follow the post-PEG recommendations including: Nutrition consult for formula and volume, external bolster 1 cm from abdominal wall, external bolster snug to abdominal wall, may place dressing under bumper after day 3, NPO x4 hrs then water today, may use PEG today for meds and water, may use PEG tomorrow for feedings, antibiotic ointment to site, check site for bleeding q 4 hrs, clean site with soap and water daily and dry thoroughly and clean site daily with half-strength hydrogen peroxide for three days, then soap and water daily. - Continue present medications. - The patient has taken no previous anticoagulant or antiplatelet agents. - No aspirin, ibuprofen, naproxen, or other non-steroidal anti-inflammatory drugs for 4 days. My findings are described in the full procedure note, which is enclosed. If I can be of further assistance, please feel free to contact me at . Sincerely, Raman Soto, 10/22/2021 8:25:11 PM This report has been signed electronically.
[2021-10-22] MEDS: Ondansetron 4 MG/2 ML Vial IV (21:45)
[2021-10-23] VITALS (14 sets, daily range): BP systolic 116–137; BP diastolic 59–79; PULSE 45–78; RESP 18–20; TEMP 35.8–36.6; O2SAT 94–96
--- NOTE | 2021-10-23 09:17 | PCM.PN.HOSP ---
Subjective Subjective Patient got the PEG tube yesterday. She is more awake. Moaning sounds but incomprehensible speech Objective Data Objective Data Vital Signs: Vital Signs Temp Pulse Resp BP Pulse Ox 97.9 F 56 L 18 137/69 H 96 10/23/21 08:24 10/23/21 08:24 10/23/21 08:24 10/23/21 08:24 10/23/21 08:28 Oxygen Flow Rate (L/min) 2 Oxygen Delivery Method Nasal Cannula Weight: 197 lb 5.019 oz Body Mass Index (BMI) 33.7 Intake & Output: Intake and Output for Last 24 Hours 10/21/21 10/22/21 10/23/21 23:59 23:59 23:59 Intake Total 2230 / 2230 2306.67 / 2306.67 Output Total 850 / 1050 1400 / 2050 850 / 850 Balance 1380 / 1180 906.67 / 256.67 -850 / -850 Lab / Micro Data Result Diagrams: 10/22/21 06:26 10/22/21 10:18 Labs: Laboratory Results - last 24 hr 10/22/21 10:18: Sodium 140, Potassium 3.0 L, Chloride 110 H, Carbon Dioxide 24.0, Anion Gap 6, BUN 9, Creatinine 0.51 L, Estim Creat Clear Calc 97.50, Est GFR (MDRD) Af Amer 158, Est GFR (MDRD) Non-Af 130, BUN/Creatinine Ratio 17.8, Glucose 109 H, Calcium 8.3 L, Phosphorus 1.6 L, Magnesium 2.2 Micro: Microbiology 10/18/21 23:20 Nasal Secretion SARS-CoV-2 Antigen (Rapid) - Final SARS-CoV-2 (COVID 19) Physical Exam Narrative General: Dementia, lack of motivation. Incomprehensible sound HEENT: Opened eyes. Moans, incomprehensible sound. Atraumatic, Normocephalic Oral: No Gingival or Mucosal Lesions/ Ulcerations Neck: Supple, No JVD, Negative Carotid Bruits Lungs: Air entry diminished in bilateral lung bases. No crepitation/rhonchi Cardiovascular: Regular rate, Regular Rhythm, Normal S1, Normal S2, No murmurs Abdomen: PEG tube dressing present. Dry. Bowel Sounds Present, Soft, Non Tender, Non-Distended : No renal angle tenderness. No suprapubic tenderness. Extremities: No edema, Capillary Refill Less than 3 Seconds Skin: No rashes, No breakdown Musculoskeletal: No Tenderness to Palpation of Joints or Extremities Neurological: Cranial nerves II-XII grossly intact, DTR 2+/4, nonfocal exam Psych/Mental Status: Advanced dementia. Assessment & Plan Assessment/Plan (1) Adult failure to thrive: (2) COVID-19: PLAN: 1. COVID-19 pneumonia-patient is currently on room air, acute hypoxic respiratory failure resolved. Patient was started on IV dexamethasone and remdesivir. As hypoxia resolved, patient does not have any active symptoms of Covid, remdesivir discontinued. Continue Decadron. 10/22: Hypokalemia. Potassium is getting replaced. Check serum magnesium and phosphorus and replace accordingly. Plan for EGD today 10/23: Patient had a PEG tube yesterday. We will start PEG tube feeding after seen by NELLIE. Resume Xarelto through PEG tube. Discharge planning #2 acute hypoxic respiratory failure secondary to COVID-19 pneumonia-patient is currently on room air at this time #3 Advanced Alzheimer's dementia/Lewy body dementia: Failure to thrive. Nonverbal. No eye contact. #4 failure to thrive-I talked to the patient's daughter and she is concerned about nutritional status. She agreed with the option of PEG tube. I called NELLIE Mcfarland Friend and discussed with him and agreed upon going ahead with the PEG tube after her daughter's consent. Patient not taking Xarelto, last dose was on 10/19. Needs further clarification about CODE STATUS. Charges/Coding Visit Charges Inpatient E&M: 29892 Subs Hosp L2
[2021-10-23] MEDS: 0.9% Normal Saline 1,000 ML 100 ML IV ×2 (10:24→18:09)
[2021-10-23] MEDS: dexAMETHasone 10 MG/ML Vial 6 MG IV (10:25)
[2021-10-23] MEDS: Nystatin Powder 15gm Bottle 1 APPLIC TOPICAL ×2 (10:25→23:22)
--- NOTE | 2021-10-23 10:32 | CASEMGMT ---
Addendum entered by Katelin Díaz 10/23/21 11:14: ROMELIA faxed updated clinicals to [facility]. Original Note: Social Work Note Pt to start tube feedings today. ROMELIA placed a call to Paige at [facility] and updated her. Plan: [facility] skilled when medically cleared Katelin Díaz PROCESSING ARCHIVIST, AIR EXPORT AGENT
[2021-10-23] MEDS: Rivaroxaban 20 MG Tablet GT (17:40)
[2021-10-23] MEDS: Jevity 1.5. 1,000 ML Bottle 240 ML GT ×2 (18:08→23:23)
--- NOTE | 2021-10-23 19:02 | EX.PCM.PN.GI ---
Subjective Subjective Patient underwent PEG tube placement yesterday. She is not complaining of any abdominal pain. She is not answering questions due to severe Lewy body dementia. Objective Data Objective Data Vital Signs: Vital Signs Temp Pulse Resp BP Pulse Ox 97.9 F 51 L 18 128/70 H 95 10/23/21 14:32 10/23/21 14:32 10/23/21 14:35 10/23/21 14:32 10/23/21 14:35 Oxygen Flow Rate (L/min) 2 Oxygen Delivery Method Nasal Cannula Weight: 197 lb 5.019 oz Body Mass Index (BMI) 33.7 Intake & Output: Intake and Output for Last 24 Hours 10/21/21 10/22/21 10/23/21 23:59 23:59 23:59 Intake Total 2230 / 2230 2306.67 / 2306.67 1835 / 1835 Output Total 850 / 1050 1400 / 2050 1450 / 1450 Balance 1380 / 1180 906.67 / 256.67 385 / 385 Lab / Micro Data Result Diagrams: 10/22/21 06:26 10/22/21 10:18 Micro: Microbiology 10/18/21 23:20 Nasal Secretion SARS-CoV-2 Antigen (Rapid) - Final SARS-CoV-2 (COVID 19) Physical Exam Const alert General Appearance: cooperative Orientation / Consciousness: oriented to person HEENT hearing grossly normal bilaterally Head and Scalp: normal to inspection Face and Sinus: face symmetric Nose: external nose normal Mouth: oral and palatal mucosa normal Eyes conjunctivae normal General Eye: normal appearance of both eyes Neck full ROM General: normal visual inspection Lymph Lymphatic: no lymphadenopathy noted Chest inspection of chest normal and palpation of chest normal Chest: symmetrical chest wall rise Resp normal respiratory effort Effort and Inspection: able to speak in complete sentences Cardio regular rate GI non-distended GI Narrative: PEG tube in place Percussion: normal to percussion Rectal Exam: deferred Assessment & Plan Assessment/Plan (1) Adult failure to thrive: PLAN: She is status post PEG tube placement for failure to thrive and inability to care for use for medications and for feedings. Charges/Coding Visit Charges Inpatient E&M: 47108 Subs Hosp L2
[2021-10-24] VITALS (8 sets, daily range): BP systolic 132–139; BP diastolic 68–82; PULSE 48–73; RESP 16–18; TEMP 36.1–36.6; O2SAT 91–96
[2021-10-24] MEDS: 0.9% Normal Saline 1,000 ML 100 ML IV (05:15)
[2021-10-24] MEDS: Jevity 1.5. 1,000 ML Bottle 240 ML GT ×2 (05:15→09:59)
[2021-10-24] MEDS: 0.9% Saline Lock 10 ML Syringe IV ×2 (06:08→10:08)
[2021-10-24] MEDS: Nystatin Powder 15gm Bottle 1 APPLIC TOPICAL (09:59)
[2021-10-24] MEDS: dexAMETHasone 10 MG/ML Vial 6 MG IV (10:08)
--- NOTE | 2021-10-24 10:30 | TREXTCAR_ITS ---
Diet 10/24/21 10:08 Diet: Tube Feeding Is pt able to select menu?: No Routine Orders/Code Status Suppository Type: Dulcolax 10mg Suppository Frequency: Daily PRN Code Status: Full Code (unverified. ) Wound(s) abd: Wound Type: PEG Therapies Weight Bearing: Weight bearing as tolerated Extremity Affected:: Bilateral Lower Physical Therapy: Eval and Treat Occupational Therapy: Eval and Treat Speech Therapy: Eval and Treat Problem/Diagnosis (1) Adult failure to thrive: Status: Acute Allergies/Procedures Done in Hospital Allergies No Known Allergies Allergy (Verified 09/13/21 15:31) Type of Care/Length of Stay Estimated LOS: Convalescent Care Less Than 30 days Type of Care Needed: Skilled Rehab Potential: Good Prognosis: Good Additional Orders/Day of Discharge Day of Discharge: 10/24/21 Dietary and Speech Recommendations Dietitian Recommendations/Changes: Via PEG- 240mL bolus of Jevity 1.5 5x/day w/ 160mL H2O flush w/ each bolus to provide 1800 calories, 76 g protein, and 1712mL total fluid/day. Start w/ 120mL bolus for first bolus; increase to 180mL bolus as tolerated for second feeding; goal is 240mL/bolus. As ordered, nutrition support meets 100% estimated energy needs. Daily wts. Discharge Plan Admission Admit Date/Time: 10/18/21 23:46 Primary Reason for Your Visit: covid 19 pneumonia with Advanced dementia Attending Provider: Chepe Fleming Primary Care Provider: Jayson Beck Discharge Orders/Prescriptions Prescriptions: New acetaminophen [Tylenol] 325 mg Tablet 650 mg feeding tube Q6H PRN PRN (Reason: Pain Score 1-10/Temp > 100.7 F) Qty: 0 RF: 0 sennosides-docusate sodium [Stool Softener-Stimulant Laxat] 8.6-50 mg Tablet 2 tab PO BID PRN PRN (Reason: Constipation) Qty: 0 RF: 0 guaifenesin 100 mg/5 mL Liquid 10 ml PO Q4H PRN PRN (Reason: COUGH) Qty: 0 RF: 0 nystatin [Nyamyc] 100,000 unit/gram Powder 1 applic topical BID Qty: 0 RF: 0 Jevity 1.5 Kp 0.06 gram-1.5 kcal/mL Liquid 240 ml G-tube 5X/DAY Qty: 0 RF: 0 Xarelto 20 mg Tablet 20 mg G-tube DINNER Qty: 0 RF: 0 dexamethasone 6 mg tablet 6 mg feeding tube DAILY Qty: 9 RF: 0 No Action rivaroxaban 20 MG tablet 20 mg PO DAILY RF: 0 Referrals / Follow Up: Raman Soto DO [STAFF PHYSICIAN] - See Referral Note (PRN, As needed for peg tube issues) Jayson Beck MD [Primary Care Provider] - Within 1 Week Disposition Disposition (needs filled in before D/C Order can be placed): [facility] Facility
--- NOTE | 2021-10-24 10:36 | CASEMGMT ---
Addendum entered by Katelin Díaz 10/24/21 12:01: ROMELIA faxed completed discharge paperwork to [facility] including transfer to extended care facility, signed medication list, any scripts, COVID tool and Convalescent [facility]000. Original in SNF folder and copy on pt's chart. ROMELIA completed convalescent 7000 in [facility]. Original in SNF folder and copy on pt's chart. ROMELIA accessed trip assist and arranged transportation via cot for 2:00pm. Transportation form completed and placed on SNF folder and copy on pt's chart. ROMELIA updated RN on transportation time. ROMELIA placed a call to Paige at [facility] and updated her on transportation time. ROMELIA placed a call to pt's daughter Amelia and updated her on discharge and transportation time. Amelia states understanding. Plan: [facility] today under Convalescent stay with Physician's transporting pt via cot at 2:00pm Original Note: Social Work Note ROMELIA placed a call to Paige at [facility] and left message that pt will be discharged today to [facility]. ROMELIA faxed updated clinicals to [facility] including PEG tube feed script. Plan: [facility] today Katelin Díaz FOOT CUTTER, ARABIC TRANSLATOR
--- NOTE | 2021-10-24 10:39 | DS.PCM_ITS ---
Providers Date of Admission: 10/18/21 Primary Care Physician: Dr. Jayson Beck MD Consultations 10/21/21 17:32 Consult: Gastroenterology Routine Consulting Provider: [facility] Reason for Consult: PEG tube, advance dementia, failure to thrive EMERGENT Consult: No MD Notified: Yes Date Notified: 10/21/21 Time Notified: 17:32 Method of Notification: Verbal Reason For Visit: ACUTE HYPOXEMIC RESPIRATORY SECONDARY TO COVID 19 Diagnosis Discharge Diagnosis (1) Adult failure to thrive: Status: Acute Code(s): R62.7 - Adult failure to thrive Medications at Discharge Home Medications rivaroxaban 20 mg PO DAILY 10/19/21 acetaminophen [Tylenol] 650 mg FEEDING TUBE Q6H PRN PRN #0 tab 10/24/21 dexamethasone 6 mg FEEDING TUBE DAILY #9 tab 10/24/21 guaifenesin 10 ml PO Q4H PRN PRN #0 ml 10/24/21 lactose-reduced food with fibr [Jevity 1.5 Kp] 240 ml G-TUBE 5X/DAY #0 ml 10/24/21 nystatin [Nyamyc] 1 applic TOPICAL BID #0 g 10/24/21 rivaroxaban [Xarelto] 20 mg G-TUBE DINNER #0 tab 10/24/21 sennosides-docusate sodium [Stool Softener-Stimulant Laxat] 2 tab PO BID PRN PRN #0 tab 10/24/21 Hospital Course Summary of Care Provided Hospital Course: This 61-year-old female with history of Lewy body dementia/early dementia dementia was brought for hypoxia, 85% on room air at home for 1 day. Her Covid symptoms started 6 days prior to admission mainly URI symptoms cough rhinorrhea fever 101 Fahrenheit weakness. 1. COVID-19 pneumonia-patient was treated with IV dexamethasone and remdesivir. Oxygen requirement remains low about 2 L/min. Last pulse ox 95% on room air. Prescription for dexamethasone given. Mild hypokalemia and potassium replaced. Her medications were resumed after PEG tube insertion. Prescription given for dexamethasone. Patient is already on Xarelto #2 acute hypoxic respiratory failure secondary to COVID-19 pneumonia-patient is currently on room air at this time #3 Advanced Alzheimer's dementia/Lewy body dementia: Failure to thrive. Nonverbal. Does not follow verbal commands. #4 failure to thrive-during hospital course, I talked to the patient's daughter and she is concerned about nutritional status.Patient because of advanced dementia cannot eat, take medication or maintain his nutrition or medication therefore PEG tube was desired by patient's daughter. She agreed with the option of PEG tube. I called NELLIE Mcfarland Friend and and he saw the patient and had EGD with PEG tube insertion. 5. DVT: Patient on Xarelto 20 mg daily and continued I further asked daughter to discuss about palliative care in the [facility]. Physical Exam Narrative Seen and examined. General: Dementia, incomprehensible sounds/words, incoherent. Does not follow command. HEENT: Opened eyes. Atraumatic, Normocephalic Oral: No Gingival or Mucosal Lesions/ Ulcerations Neck: Supple, No JVD, Negative Carotid Bruits Lungs: Air entry diminished in bilateral lung bases. No crepitation/rhonchi Cardiovascular: Regular rate, Regular Rhythm, Normal S1, Normal S2, No murmurs Abdomen: PEG tube dressing Dry. On Jevity tube feed. Bowel Sounds Present, S oft, Non Tender, Non-Distended : No renal angle tenderness. No suprapubic tenderness. Extremities: No edema, Capillary Refill Less than 3 Seconds Skin: No rashes, No breakdown Musculoskeletal: No Tenderness to Palpation of Joints or Extremities Neurological: Cranial nerves II-XII grossly intact, DTR 2+/4, nonfocal exam Psych/Mental Status: Advanced dementia. Weight / BMI Weight Weight: 195 lb 8.8 oz Body Mass Index (BMI) 33.7 ABG / Lab / Microbiology Data Result Diagrams: 10/22/21 06:26 10/22/21 10:18 Microbiology: Microbiology 10/18/21 20:56 Blood Culture (Wb) - Anticubital Left Blood Culture - Final No growth in 5 days. 10/18/21 23:20 Nasal Secretion SARS-CoV-2 Antigen (Rapid) - Final SARS-CoV-2 (COVID 19) Meaningful Use Info Meaningful Use Diagnoses (Choose all that apply): None applicable Discharge Plan Admission Admit Date/Time: 10/18/21 23:46 Primary Reason for Your Visit: covid 19 pneumonia with Advanced dementia Attending Provider: Chepe Fleming Primary Care Provider: Jayson Beck Discharge Orders/Prescriptions Prescriptions: New acetaminophen [Tylenol] 325 mg Tablet 650 mg feeding tube Q6H PRN PRN (Reason: Pain Score 1-10/Temp > 100.7 F) Qty: 0 RF: 0 sennosides-docusate sodium [Stool Softener-Stimulant Laxat] 8.6-50 mg Tablet 2 tab PO BID PRN PRN (Reason: Constipation) Qty: 0 RF: 0 guaifenesin 100 mg/5 mL Liquid 10 ml PO Q4H PRN PRN (Reason: COUGH) Qty: 0 RF: 0 nystatin [Nyamyc] 100,000 unit/gram Powder 1 applic topical BID Qty: 0 RF: 0 Jevity 1.5 Kp 0.06 gram-1.5 kcal/mL Liquid 240 ml G-tube 5X/DAY Qty: 0 RF: 0 Xarelto 20 mg Tablet 20 mg G-tube DINNER Qty: 0 RF: 0 dexamethasone 6 mg tablet 6 mg feeding tube DAILY Qty: 9 RF: 0 No Action rivaroxaban 20 MG tablet 20 mg PO DAILY RF: 0 Referrals / Follow Up: Raman Soto DO [STAFF PHYSICIAN] - See Referral Note (PRN, As needed for peg tube issues) Jayson Beck MD [Primary Care Provider] - Within 1 Week Disposition Disposition (needs filled in before D/C Order can be placed): Residential Facility Charges/Coding Visit Charges Inpatient E&M: 51880 Disch Hosp
== END 2021-10-24 14:07 | DRG 177 ==
LOC: ED 22:58 → MS3 10-19 03:23
PROVIDERS: Internal Medicine; Internal Medicine Gastroenterology; Admitting Provider Hospitalist; Emergency Provider Emergency Medicine; PCP Family Medicine; Visit Provider Internal Medicine
PROC: 0DJ08ZZ Inspection of Upper Intestinal Tract, Via Natural or Artificial Opening Endoscopic (ICD-10-PCS; CPT 43235; principal; 2021-10-22 17:25)
DX: U07.1 COVID-19 (principal); J96.01 Acute respiratory failure with hypoxia; J12.82 Pneumonia due to coronavirus disease 2019; F02.80 Dementia in other diseases classified elsewhere, unspecified severity, without behavioral disturbance, psychotic disturbance, mood disturbance, and anxiety; G31.83 Neurocognitive disorder with Lewy bodies; G30.9 Alzheimer's disease, unspecified; E87.6 Hypokalemia; R62.7 Adult failure to thrive; R13.10 Dysphagia, unspecified; K44.9 Diaphragmatic hernia without obstruction or gangrene; Z86.718 Personal history of other venous thrombosis and embolism; Z79.01 Long term (current) use of anticoagulants; Z79.82 Long term (current) use of aspirin; Z91.81 History of falling; Z68.33 Body mass index [BMI] 33.0-33.9, adult
CPT/HCPCS: 36415; 71045; 80048; 80053; 80076; 83605; 83735; 84100; 84145; 85025; 87040; 87426; 93005; 94762; 97110; 97163; 97166; 97530; 97535; 97802; 99285; J7030; J7050; A4216; J2405

== ENCOUNTER 2022-02-12 10:03 | Emergency (ER) | payer OTHER, SELFPAY ==
[2022-02-12 10:04] VITALS: BP 145/78; PULSE 104; RESP 16; TEMP 36.6; O2SAT 97; BMI 29.6
--- NOTE | 2022-02-12 10:14 | CT_ITS ---
STUDY: CT BRAIN WITHOUT CONTRAST REASON FOR EXAM: Female, 61 years old. Head trauma due to a fall. RADIATION DOSAGE (If Supplied By Facility): CTDIvol = ( 44.99 ) mGy, DLP = ( 745.49 ) mGycm TECHNIQUE: Transaxial CT imaging of the brain was performed without administration of intravenous contrast material. Individualized dose optimization techniques were used for this CT. COMPARISON: Comparison is made with prior examination dated 11/16/2019. FINDINGS: Normal soft tissue structures. Normal calvarium. There is mild cerebral atrophy with widening of the extra-axial spaces and ventricular dilatation. There are areas of decreased attenuation within the white matter tracts of the supratentorial brain, consistent with microvascular disease changes. Normal basal ganglia and thalami. Normal brainstem. Normal cerebellum. There is no intracranial hemorrhage. There are no findings of an acute ischemic infarction. Atherosclerotic plaque formation of the cavernous portions of the internal carotid arteries bilaterally. Normal visualized paranasal sinuses. CT/Brain/Head without Contrast IMPRESSION: Chronic involutional changes of the brain. Electronically Signed: Hola Frye MD at 10:51 EDT ,
--- NOTE | 2022-02-12 10:14 | CT_ITS ---
STUDY: CT FACIAL BONES WITHOUT CONTRAST REASON FOR EXAM: Female, 61 years old. Right sided facial trauma RADIATION DOSAGE (If Supplied By Facility): CTDIvol = ( 29.38 ) mGy, DLP = ( 488.69 ) mGycm TECHNIQUE: The patient was scanned in a multi detector CT scanner. Sagittal and coronal images were reconstructed. Individualized dose optimization techniques were used for this CT. COMPARISON: None. FINDINGS: Normal soft tissue structures. Normal orbital wilson and orbital contents. Normal nasal bones and anterior nasal spine. Normal facial bones. There is no demonstrated fracture. 55.9 mm mucosal polyp in the lateral wall of the superior aspect of the right maxillary sinus. CT/Sinus/Facial Bone IMPRESSION: No acute abnormality is seen. Electronically Signed: Hola Frye MD at 10:53 EDT ,
--- NOTE | 2022-02-12 10:16 | EDS_ITS ---
HPI HPI - Fall History of Present Illness Chief Complaint: Fall Informant: patient, EMS and SNF Occured/Mechanism Occurred: Today Pain/Injury Pain Location: head and face Current Severity: Mild Maximum Severity: Mild Associated Symptoms Associated Symptoms: Negative for Parasthesias, Weakness and Loss of function Narrative Narrative: 1-year-old female resident of an area senior care. She has a history of dementia and DVT. She is on a blood thinner currently. Reportedly had a fall today at the senior care injuring her right forehead and right face. Patient has a history of dementia and is a very limited informant. Prior similar symptoms: Yes Recent Illness/Hospitalization: No PFSH PFSH Medical History Adult failure to thrive COVID-19 Dementia DVT (deep venous thrombosis) Hypoxemia Respiratory failure with hypoxia Weakness Home Medications rivaroxaban 20 mg PO DAILY 10/19/21 [History Last Taken 10/17/21] acetaminophen [Tylenol] 650 mg FEEDING TUBE Q6H PRN PRN #0 tab 10/24/21 [Rx Last Taken Unknown] dexamethasone 6 mg FEEDING TUBE DAILY #9 tab 10/24/21 [Rx Last Taken Unknown] guaifenesin 10 ml PO Q4H PRN PRN #0 ml 10/24/21 [Rx Last Taken Unknown] lactose-reduced food with fibr [Jevity 1.5 Kp] 240 ml G-TUBE 5X/DAY #0 ml 10/24/21 [Rx Last Taken Unknown] nystatin [Nyamyc] 1 applic TOPICAL BID #0 g 10/24/21 [Rx Last Taken Unknown] rivaroxaban [Xarelto] 20 mg G-TUBE DINNER #0 tab 10/24/21 [Rx Last Taken Unknown] sennosides-docusate sodium [Stool Softener-Stimulant Laxat] 2 tab PO BID PRN PRN #0 tab 10/24/21 [Rx Last Taken Unknown] Allergy/AdvReac Type Severity Reaction Status Date / Time No Known Allergies Allergy Verified 09/13/21 15:31 Family History Other Diabetes Social History Smoking Status: Never smoker substance use type: does not use ROS ROS ED ROS Narrative Unable due to the patient's dementia. Review of Systems ROS Unobtainable: due to mental status EXAM Physical Exam Narrative Exam Narrative: 61-year-old female no acute distress. Lying in bed. Vital signs stable. Afebrile. H EENT exam she has a bruise and small hematoma on her right forehead and a bruise on her right cheek and face. There is reactive light. Scalp nontender. No hematoma. No laceration. Trachea midline. C- spine nontender. Lungs clear to auscultation. Heart regular rhythm no murmur. Chest wall nontender. Abdomen soft nontender. Pelvic girdle intact. No shortening or rotation either lower extremity. Upper extremities are nontender. Normal corporate operations compliance manager strength. Knees ankles and feet are nontender. Neurologically she is awake. Her eyes are open. She follows commands. She is a very poor informant due to her dementia. Const Vital Signs: 02/12/22 10:04 02/12/22 10:10 Temperature 97.9 F Temperature Source Temporal Pulse Rate 104 H Respiratory Rate 16 Respiratory Effort Normal Non-Labored Blood Pressure 145/78 H Blood Pressure Mean 100 Pulse Ox 97 Oxygen Delivery Method Room Air Positive well nourished, well developed and obese; Negative for cachectic, contractures or unkempt General Appearance ED: well developed and NAD; Negative for unkempt, cachectic or contractures Nutritional Appearance: obese; Negative for cachectic HEENT Reports normocephalic HEENT Narrative: Right forehead and facial bruising. trauma and tenderness; Negative for atraumatic Eyes PERRL and EOMs intact bilaterally General Eye ED: Negative for pale conjunctiva or scleral icterus Neck full ROM, no lymphadenopathy and supple General: Negative for tenderness Chest Wall inspection of chest normal and palpation of chest normal Resp normal respiratory effort, no retractions and clear to auscultation bilaterally Auscultation: Negative for rales, rhonchi or wheezes Cardio regular rate, regular rhythm, S1 normal heart sound, S2 normal heart sound and no murmurs GI non-tender, non-distended and no masses Auscultation: normoactive bowel sounds Palpation: soft; Negative for guarding or rebound tenderness present Back/Spine no CVA tenderness General Back: Negative for CVA tenderness Cervical Spine: Negative for cervical spine tenderness Thoracic Spine / Upper Back: Negative for thoracic spinal tenderness Lumbar Spine / Lower Back: Negative for lumbar spinal tenderness Extremity normal to inspection and no joint enlargement Neuro No oriented x3, moves all extremities and no focal motor deficits Sensorium / Orientation: alert and confused; Negative for oriented to person, oriented to place, oriented to time, lethargic or stuporous Psych mental status grossly normal Appearance: Negative for unkempt Skin Lesions: no lesions and No lesion noted Rashes: no rashes and No rashes noted Trauma: Negative for abrasion MDM MDM MDM Narrative Medical decision making narrative: 61-year-old female with dementia from the senior care on a blood thinner fell and has facial and head trauma. CAT scan of her brain and facial bones is being obtained. Repeat exam the patient is doing well at 10:58 AM he will be discharged back to extended care facility. Radiography Diagnostic Testing: Clinical Impression(s) from Imaging Studies Brain CT 02/12/22 10:14 IMPRESSION: Chronic involutional changes of the brain. Electronically Signed: Hola Frye MD at 10:51 EDT , Facial/Sinus 02/12/22 10:14 IMPRESSION: No acute abnormality is seen. Electronically Signed: Hola Frye MD at 10:53 EDT , CAT scan of the brain and facial bones were unremarkable as read by the radiologist and reviewed by me. Discharge Plan Triage Chief Complaint: Fall ED Provider: Hay Pool Dx/Rx/DC Orders Clinical Impression: Fall, Acute head trauma, Contusion of face, Chronic anticoagulation Instructions: ED Facial Contusion, ED Head Injury (Adult) Prescriptions: No Action rivaroxaban 20 MG tablet 20 mg PO DAILY RF: 0 acetaminophen [Tylenol] 325 mg Tablet 650 mg feeding tube Q6H PRN PRN (Reason: Pain Score 1-10/Temp > 100.7 F) Qty: 0 RF: 0 sennosides-docusate sodium [Stool Softener-Stimulant Laxat] 8.6-50 mg Tablet 2 tab PO BID PRN PRN (Reason: Constipation) Qty: 0 RF: 0 guaifenesin 100 mg/5 mL Liquid 10 ml PO Q4H PRN PRN (Reason: COUGH) Qty: 0 RF: 0 nystatin [Nyamyc] 100,000 unit/gram Powder 1 applic topical BID Qty: 0 RF: 0 Jevity 1.5 Kp 0.06 gram-1.5 kcal/mL Liquid 240 ml G-tube 5X/DAY Qty: 0 RF: 0 Xarelto 20 mg Tablet 20 mg G-tube DINNER Qty: 0 RF: 0 dexamethasone 6 mg tablet 6 mg feeding tube DAILY Qty: 9 RF: 0 Primary Care Provider: Jayson Beck Referrals: Jayson Beck MD [Primary Care Provider] - As Needed Activity Restrictions/Additional Instructions: CAT scan today of the brain and facial bones was unremarkable. Ice to the forehead and face to decrease bruising. Follow-up with your doctor as needed. Disposition Disposition: Home, Self Care
== END 2022-02-12 11:56 | disposition home or self-care (01) ==
PROVIDERS: Emergency Provider Emergency Medicine; PCP Family Medicine; Visit Provider Emergency Medicine
DX: S00.83XA Contusion of other part of head, initial encounter (principal); F03.90 Unspecified dementia, unspecified severity, without behavioral disturbance, psychotic disturbance, mood disturbance, and anxiety; E66.9 Obesity, unspecified; Z86.16 Personal history of COVID-19; W19.XXXA Unspecified fall, initial encounter; Z79.01 Long term (current) use of anticoagulants
CPT/HCPCS: 70450; 70486; 99284